=== PATIENT | female | born 1960 | race Caucasian/White ===

== ENCOUNTER 2019-10-20 09:04 | Outpatient (CLI) | payer MEDICARE, SELFPAY ==
[2019-10-20 09:24] LABS: Basophils Absolute Auto 0.1 K/mm3 (0.0-0.1); Eosinophils Absolute Auto 0.1 K/mm3 (0-0.3); Eosinophils Percent Auto 2.8 % (0-4.4); Hematocrit 43.6 % (37.0-47.0); Hemoglobin 13.6 g/dL (12.0-15.0); Immature Granulocyte Absolute 0.01 K/mm3 (0.00-0.031); Immature Granulocyte Percent A 0.2 % (0-0.5); Lymphocytes Absolute Auto 1.33 K/mm3 (0.9-3.2); Lymphocytes Percent Auto 26.5 % (18.3-44.2); Mean Corpuscular HGB Conc 31.2 g/dl (32-36); Mean Corpuscular Hemoglobin 29.6 pg (26-34); Mean Platelet Volume 10.2 fl (7.4-10.4); Monocytes Absolute Auto 0.6 K/mm3 (0.1-0.6); Neutrophils Absolute Auto 2.9 K/mm3 (1.3-6.7); Neutrophils Percent Auto 58.5 % (45.5-73.1); Platelet Count Result 208 k/mm3 (150-375); Red Blood Count 4.59 M/mm3 (4.2-5.4); Red Cell Distribution Width 15.5 % (11.5-14.5)
[2019-10-20 09:34] LABS: Alanine Aminotransferase 11 U/L (4-35); Albumin Level 4.2 g/dL (3.5-5.1); Alkaline Phosphatase 59 U/L (38-126); Aspartate Amino Transferase 20 U/L (14-36); Bilirubin,Total 0.8 mg/dL (0.2-1.3); Blood Urea Nitrogen 21 mg/dL (7-17); Calcium 9.1 mg/dL (8.4-10.2); Carbon Dioxide 30 mmol/L (22-30); Chloride 105 mmol/L (98-107); Cholesterol 177 mg/dL (0-200); Estimated Glomerular Filt Rate > 60; Glucose 86 mg/dL (65-105); HDL Direct 39 mg/dL; Sodium 142 mmol/L (137-145); Triglycerides 122 mg/dL (<150)
[2019-10-20 09:44] LABS: LDL Cholesterol Direct 101 mg/dL
[2019-10-20 10:21] LABS: Vitamin D 25 Hydroxy 53.6 ng/mL
[2019-10-20 10:35] LABS: Thyroid Stimulating Hormone Reflex 0.686 uIU/mL (0.465-4.68)
== END 2019-10-20 09:05 | disposition home or self-care (01) ==
PROVIDERS: PCP Family Medicine; Visit Provider Nurse Practitioner
DX: E55.9 Vitamin D deficiency, unspecified (principal); E03.9 Hypothyroidism, unspecified; Z13.6 Encounter for screening for cardiovascular disorders; R53.83 Other fatigue
CPT/HCPCS: 36415; 80053; 80061; 82306; 84443; 85025

== ENCOUNTER 2020-06-16 14:36 | Outpatient (CLI) | payer MEDICARE, SELFPAY ==
--- NOTE | ~2020-06-16 | MM_ITS ---
EXAMINATION: MM screening je BI w divina HISTORY: Screening mammogram TECHNIQUE: Craniocaudal and mediolateral oblique 3-D tomosynthesis images were obtained and synthetic 2-D images were generated. CAD analysis was submitted and interpreted. COMPARISON: 02/13/2017, 01/25/2016, 10/11/2014 bilateral digital screening mammogram examinations BREAST PARENCHYMAL COMPOSITION: The breasts are almost entirely fatty. FINDINGS: There is no evidence of suspicious mass, calcification, or architectural distortion to sugg est malignancy in either breast. There has been no suspicious interval change. IMPRESSION: 1. No mammographic evidence of malignancy. 2. Recommend routine screening mammography in one year. BI-RADS Category 1: Negative Reviewed, dictated and finalized at location A. TOR ENGINE ASSEMBLER
--- NOTE | ~2020-06-16 | DEXA_ITS ---
Bone Density Report Name: Mary Armstrong Age: 60 Sex: Female Ethnicity: White Date of : 1960 Indication: osteopenia; height loss; Referring Provider: Philomena Chanel Study: Bone densitometry was performed. Exam Date: June 16, 2020 Accession number: [id number] Bone Density: Region BMD T-score Z-score Classification AP Spine (L1, L2, L3) 0.860 -1.4 -0.1 Osteopenia Femoral Neck (Left) 0.618 -2.1 -0.8 Osteopenia Total Hip (Left) 0.742 -1.6 -0.7 Osteopenia Total Hip Bilateral Avg 0.802 -1.1 -0.2 Osteopenia Femoral Neck (Right) 0.757 -0.8 0.4 Normal Total Hip (Right) 0.861 -0.7 0.2 Normal World Health Organization criteria for BMD impression classify patients as: Normal (T-score at or above -1.0), Osteopenia (T-score between -1.0 and -2.5), or Osteoporosis (T-score at or below -2.5). 10-year Fracture Risk(1): Major Osteoporotic Fracture 8.3% Hip Fracture 1.0% Reported Risk Factors: [place] (), Neck BMD=0.618, BMI=40.2 (1) FRAX(R) Version 3.08. Fracture probability calculated for an untreated patient. Fracture probability may be lower if the patient has received treatment. Previous Exams: Region Exam Age BMD T-score BMD Change BMD Change Date g/cm2 vs Baseline vs Previous AP Spine(L1, L2, L3) 06/16/2020 60 0.860 -1.4 0.062(7.8%)# -0.058(-6.3%)* 02/13/2017 56 0.918 -0.9 0.120(15.1%)# 0.084(10.1%)* 10/11/2014 54 0.834 -1.7 0.036(4.5%)# 0.036(4.5%)# 08/29/2012 52 0.797 -2.0 Total Hip(Left) 06/16/2020 60 0.742 -1.6 -0.041(-5.2%)# -0.034(-4.4%)* 02/13/2017 56 0.776 -1.4 -0.006(-0.8%)# -0.026(-3.3%) 10/11/2014 54 0.802 -1.1 0.020(2.5%)# 0.020(2.5%)# 08/29/2012 52 0.783 -1.3 Total Hip(Right) 06/16/2020 60 0.861 -0.7 0.104(13.7%)# 0.113(15.0%)* 02/13/2017 56 0.749 -1.6 -0.009(-1.2%)# -0.182(-19.6%) 10/11/2014 54 0.931 -0.1 0.173(22.9%)# 0.173(22.9%)# 08/29/2012 52 0.757 -1.5 *Denotes significance at 95% confidence level, LSC for AP Spine = 0.022 g/cm2, LSC for Total Hip = 0.027 g/cm2 Clinical Information Provided by Patient: Has used the following medications: Vitamin D, Calcium Patient maximum height was 65 Menopause Age: 49 No regular weight bearing exercise Does not regularly consume dairy products Drinks caffeinated beverages Onset of menses at age 11 Number of children 0 Impression: The patient has low bone mass, based on the Left
== END 2020-06-16 14:37 | disposition home or self-care (01) ==
LOC: ANHIMG 14:41
PROVIDERS: PCP Family Medicine; Visit Provider Student in an Organized Health Care Education/Training Program
DX: Z12.31 Encounter for screening mammogram for malignant neoplasm of breast (principal); Z78.0 Asymptomatic menopausal state; M85.88 Other specified disorders of bone density and structure, other site; M85.852 Other specified disorders of bone density and structure, left thigh
CPT/HCPCS: 77063; 77067; 77080

== ENCOUNTER 2020-08-22 11:02 | Outpatient (CLI) | payer MEDICARE, SELFPAY ==
--- NOTE | 2020-08-22 11:24 | ECG_ITS ---
Measurements Intervals Harrison Rate: 68 P: -17 HI: 127 QRS: -27 QRSD: 110 T: 7 QT: 367 QTc: 391 Interpretive Statements SINUS RHYTHM INCOMPLETE RIGHT BUNDLE BRANCH BLOCK LEFT VENTRICULAR HYPERTROPHY AND ST-T CHANGE MINIMAL Q WAVES- HIGH LATERAL LEADS BORDERLINE T WAVE ABNORMALITY- INFERIOR LEADS BASELINE ARTIFACT- I, III BORDERLINE ECG Electronically Signed On 08-22-2020 11:53:02 AWS SOLUTION ARCHITECT by Stephen Briscoe D.O.
[2020-08-22 11:33] LABS: Hematocrit 44.1 % (37.0-47.0); Hemoglobin 14.2 g/dL (12.0-15.0); Mean Corpuscular HGB Conc 32.2 g/dl (32-36); Mean Corpuscular Hemoglobin 31.5 pg (26-34); Mean Corpuscular Volume 97.8 fl (80-100); Mean Platelet Volume 10.4 fl (7.4-10.4); Platelet Count Result 229 k/mm3 (150-375); Red Blood Count 4.51 M/mm3 (4.2-5.4); Red Cell Distribution Width 13.4 % (11.5-14.5); White Blood Count 6.6 K/mm3 (4.5-10.0)
[2020-08-22 11:39] LABS: Hemoglobin A1C 5.2 % (<5.7)
[2020-08-22 11:53] LABS: Alanine Aminotransferase 12 U/L (4-35); Albumin Level 4.7 g/dL (3.5-5.1); Alkaline Phosphatase 54 U/L (38-126); Anion Gap 8 mmol/L (8-16); Aspartate Amino Transferase 25 U/L (14-36); Bilirubin,Total 0.9 mg/dL (0.2-1.3); Blood Urea Nitrogen 19 mg/dL (7-17); Calcium 9.9 mg/dL (8.4-10.2); Carbon Dioxide 30 mmol/L (22-30); Chloride 104 mmol/L (98-107); Cholesterol 182 mg/dL (0-200); Estimated Glomerular Filt Rate > 60; Glucose 89 mg/dL (65-105); HDL Direct 40 mg/dL; Potassium 4.1 mmol/L (3.4-5.0); Sodium 142 mmol/L (137-145); Triglycerides 105 mg/dL (<150)
[2020-08-22 12:04] LABS: LDL Cholesterol Direct 110 mg/dL
[2020-08-22 13:19] LABS: Thyroid Stimulating Hormone Reflex 0.158 uIU/mL (0.465-4.68)
[2020-08-22 14:19] LABS: Free T4 Free Thyroxine Reflex 1.65 ng/dL (0.78-2.19)
[2020-08-22 15:15] LABS: Total Triiodothyronine (T3) 1.17 NG/ML (0.97-1.69)
[2020-08-25 11:43] LABS: Vitamin D 1,25 (OH)2 Total 42 pg/mL (18-72); Vitamin D2 1,25 (OH)2 <8 pg/mL; Vitamin D3 1,25 (OH)2 42 pg/mL
== END 2020-08-22 11:03 | disposition home or self-care (01) ==
PROVIDERS: PCP Family Medicine; Visit Provider Nurse Practitioner Family
DX: E03.9 Hypothyroidism, unspecified (principal); Z13.220 Encounter for screening for lipoid disorders; Z79.899 Other long term (current) drug therapy; I89.0 Lymphedema, not elsewhere classified; Z01.818 Encounter for other preprocedural examination; E55.9 Vitamin D deficiency, unspecified; E66.01 Morbid (severe) obesity due to excess calories; Z68.36 Body mass index [BMI] 36.0-36.9, adult
CPT/HCPCS: 36415; 80053; 80061; 82652; 83036; 84439; 84443; 84480; 85027; 93005

== ENCOUNTER 2021-03-13 08:21 | Outpatient (CLI) | payer MEDICARE, MEDICAID, SELFPAY ==
--- NOTE | ~2021-03-13 | NM_ITS ---
EXAMINATION: NM paz stress w perfusion DATE: 03/13/2021 13:07 INDICATION: Dyspnea TECHNIQUE: Rest images were obtained following intravenous administration of 9.1 mCi Tc99m tetrofosmi n (Myoview). The patient was infused intravenously with Lexiscan (Regadenoson). Then, 27.1 mCi Tc99m tetrofosmin (Myoview) was administered intravenously, and stress images were obtained. Data was recon structed into short axis and horizontal and vertical long axis SPECT images. Gated SPECT images were also obtained. COMPARISON: None. FINDINGS: There is no definite reversible or fixed perfusion abnormality to suggest ischemia or infar ction. There is normal left ventricular chamber size, wall motion and ejection fraction. Left ventr icular ejection fraction measures >70%. IMPRESSION: 1. Normal myocardial perfusion at rest and during stress. 2. Left ventricular ejection fraction measuring >70%. Reviewed, dictated and finalized at location A.
--- NOTE | 2021-03-13 08:31 | EST_ITS ---
Patient Info Name: Mary Armstrong Age: 60 years : 1960 Gender: Female Ht: 64 in Wt: 210 lbs BSA: 2.12 m2 HR: 74 bpm BP: 102 / 81 mmHg Heart Rhythm: Sinus Rhythm Exam Date: 03/13/2021 11:52 AM Exam Location: [facility] Stress Patient Status: Outpatient Admit Date: 03/13/2021 Staff Ordering Physician: Stephen Briscoe DO Attending Provider: Stephen Briscoe DO Exercise Technologist: Nai Ray CT Exercise Physician: Stephen Briscoe DO Exam Type: CA stress paz w NM Study Info A regadenoson stress test was performed. Summary 1. 1. Negative lexiscan stress test for ischemic ST changes by ECG criteria. 2. 2. Hypertensive response to lexiscan. 3. 3. Nuclear scan to follow and will be reported separately. Please correlate with it. 4. 4. Patient informed of the above results. Protocol: Lexiscan Stress ECG Details Stage: REST Duration (min): 2 min : 28 sec HR (bpm): 79 SBP (mmHg): 102 DBP (mmHg): 81 Stage: REST Duration (min): 15 min : 8 sec HR (bpm): 77 SBP (mmHg): 102 DBP (mmHg): 81 Stage: STAGE 1 Duration (min): 0 min : 59 sec HR (bpm): 111 SBP (mmHg): 102 DBP (mmHg): 81 Stage: RECOVERY Duration (min): 1 min : 0 sec HR (bpm): 109 SBP (mmHg): 149 DBP (mmHg): 114 Stage: RECOVERY Duration (min): 2 min : 0 sec HR (bpm): 104 SBP (mmHg): 149 DBP (mmHg): 114 Stage: RECOVERY Duration (min): 3 min : 0 sec HR (bpm): 101 SBP (mmHg): 149 DBP (mmHg): 114 Stage: RECOVERY Duration (min): 4 min : 0 sec HR (bpm): 91 SBP (mmHg): 260 DBP (mmHg): 101 Stage: RECOVERY Duration (min): 5 min : 0 sec HR (bpm): 100 SBP (mmHg): 260 DBP (mmHg): 101 Stage: RECOVERY Duration (min): 5 min : 25 sec HR (bpm): 95 SBP (mmHg): 166 DBP (mmHg): 95 Rest HR: 77 bpm Peak HR: 115 bpm Rest Sys BP: 102 mmHg Peak Sys BP: 160 mmHg Max Pred HR: 161 bpm % Max Pred HR: 71 % Target HR: 137 bpm Max RPP: 18,400 bpm*mmHg Termination Reason: Completed protocol Cardiac Symptoms: Shortness of breath Total Time: 1 min : 0 sec Rest Lopez BP: 81 mmHg Peak Lopez BP: 101 mmHg Total Dose: 0.4 mg Resting ECG Sinus rhythm, IRBBB. Stress ECG No ST changes. Arrhythmias None. Report Signatures
--- NOTE | 2021-03-13 08:31 | ECHO_ITS ---
Patient Info Name: Mary Armstrong Age: 60 years : 1960 Gender: Female Ht: 64 in Wt: 202 lbs BSA: 2.07 m2 HR: 83 bpm BP: 112 / 77 mmHg Heart Rhythm: Sinus Rhythm Exam Date: 03/13/2021 9:39 AM Exam Location: [facility] Pulmonary Patient Status: Outpatient Admit Date: 03/13/2021 Staff Ordering Physician: Stephen Briscoe DO Binder Cutter Hand: Agueda Sellers RDCS Attending Provider: Stephen Briscoe DO Referring Physician: Luis Felipe BARBER; Exam Type: CA echo doppler color flow Study Info Indications R06.00 - Dyspnea, unspecified Complete two-dimensional, color flow and Doppler transthoracic echocardiogram is performed. Summary 1. Complete two-dimensional, color flow and Doppler transthoracic echocardiogram is performed. 2. Left ventricular chamber dimension is normal. 3. Left ventricular systolic function is normal, estimated at 60-65%. 4. The left ventricular diastolic function is grade I diastolic dysfunction. 5. E/e' 12 is mildly elevated. 6. There is mild to moderate aortic valve regurgitation. 7. The mitral valve has mildly calcified annulus. 8. No pulmonary hypertension, estimated pulmonary arterial systolic pressure is 27 mmHg. Left Ventricle E/e' 12 is mildly elevated. Left ventricular chamber dimension is normal. Left ventricular systolic function is normal, estimated at 60-65%. The left ventricular diastolic function is grade I diastolic dysfunction. Right Ventricle Right ventricular chamber dimension is normal. Right ventricular systolic function is normal. Left Atria Left atrial chamber dimension is normal. Right Atria Right atrial chamber dimension is normal. Aortic Valve The aortic valve is trileaflet. There is no aortic valve stenosis. There is mild to moderate aortic valve regurgitation. Pulmonic Valve There is no pulmonic regurgitation. Mitral Valve The mitral valve has mildly calcified annulus. There is no mitral valve stenosis. There is no mitral valve regurgitation. Tricuspid Valve There is no tricuspid valve regurgitation. No pulmonary hypertension, estimated pulmonary arterial systolic pressure is 27 mmHg. Pericardium/Pleural There is no pericardial effusion. Inferior Vena Cava Normal inferior vena cava with >50% collapse upon inspiration consistent with normal right atrial pressure, 5 mmHg. Aorta The aortic root size at the sinus of Valsalva is normal. Left Ventricular Outflow Tract Name Value Normal LVOT 2D LVOT Diameter 1.9 cm LVOT Doppler LVOT Peak Gradient 3 mmHg LVOT Mean Gradient 2 mmHg LVOT VTI 22 cm LVOT VTI/AV VTI Ratio 0.5 LVOT Stroke Volume 61 ml LVOT CO 3.5 l/min LVOT CI 1.7 l/min/m2 Pulmonic Valve Name Value Normal RVOT Doppler ---------
== END 2021-03-13 08:22 | disposition home or self-care (01) ==
PROVIDERS: PCP Family Medicine; Visit Provider Internal Medicine Cardiovascular Disease
DX: R06.00 Dyspnea, unspecified (principal); I35.1 Nonrheumatic aortic (valve) insufficiency
CPT/HCPCS: 78452; 93017; 93306; A9502; J2785

== ENCOUNTER 2021-05-24 09:33 | Outpatient (CLI) | payer MEDICARE, MEDICAID, SELFPAY ==
[2021-05-24 10:09] LABS: Hematocrit 42.8 % (37.0-47.0); Hemoglobin 13.9 g/dL (12.0-15.0)
[2021-05-24 10:23] LABS: Albumin Level 4.5 g/dL (3.5-5.1); Estimated Glomerular Filt Rate 57
== END 2021-05-24 09:34 | disposition home or self-care (01) ==
PROVIDERS: PCP Family Medicine; Visit Provider Orthopaedic Surgery
DX: Z01.818 Encounter for other preprocedural examination (principal); M16.11 Unilateral primary osteoarthritis, right hip
CPT/HCPCS: 36415; 82040; 82565; 85014; 85018

== ENCOUNTER 2021-06-19 12:22 | Outpatient (CLI) | payer MEDICARE, MEDICAID, SELFPAY ==
[2021-06-19 14:14] LABS: Basophils Absolute Auto 0.1 K/mm3 (0.0-0.1); Basophils Percent Auto 1.1 % (0.2-1.2); Eosinophils Absolute Auto 0.1 K/mm3 (0-0.3); Eosinophils Percent Auto 2.1 % (0-4.4); Hematocrit 42.8 % (37.0-47.0); Hemoglobin 14.3 g/dL (12.0-15.0); Immature Granulocyte Absolute 0.03 K/mm3 (0.00-0.031); Immature Granulocyte Percent A 0.5 % (0-0.5); Lymphocytes Absolute Auto 1.82 K/mm3 (0.9-3.2); Lymphocytes Percent Auto 29.4 % (18.3-44.2); Mean Corpuscular HGB Conc 33.4 g/dl (32-36); Mean Corpuscular Volume 95.7 fl (80-100); Mean Platelet Volume 10.6 fl (7.4-10.4); Monocytes Absolute Auto 0.4 K/mm3 (0.1-0.6); Monocytes Percent Auto 6.9 % (2.6-8.5); Neutrophils Absolute Auto 3.7 K/mm3 (1.3-6.7); Platelet Count Result 230 k/mm3 (150-375); Red Blood Count 4.47 M/mm3 (4.2-5.4); Red Cell Distribution Width 15.4 % (11.5-14.5); White Blood Count 6.2 K/mm3 (4.5-10.0)
[2021-06-19 14:26] LABS: Hemoglobin A1C 5.3 % (<5.7)
[2021-06-19 14:27] LABS: Glucose 86 mg/dL (65-110)
[2021-06-19 18:30] LABS: Urine Cotinine NEGATIVE
== END 2021-06-19 12:23 | disposition home or self-care (01) ==
PROVIDERS: PCP Family Medicine; Visit Provider Orthopaedic Surgery
DX: M16.11 Unilateral primary osteoarthritis, right hip (principal); Z01.818 Encounter for other preprocedural examination
CPT/HCPCS: 80307; 82947; 83036; 85025; 87081

== ENCOUNTER 2021-07-18 10:29 | Inpatient (IN) | payer MEDICARE, MEDICAID, SELFPAY ==
[2021-06-19 11:49] VITALS: BP 134/86; PULSE 94; RESP 20; TEMP 36.8; O2SAT 97; BMI 38.2
--- NOTE | 2021-06-19 11:52 | PC.NURSE ---
Report to the Outpatient Waiting Room, entrance under the green pavilion located off [facility], at time _0830_ on date _07/18/21_. OR Time: _1030 AM__. - You and your visitor will be asked a series of questions to screen for COVID 19 for your protection. - A mask is required within the hospital. - Only one visitor is allowed at this time. Patient visitors will be guided where to wait when not with patient. Preoperative COVID Testing Requirements: No COVID Test needed if: (proof is required; if not received patient will have Rapid Test prior to entry) - Patient has received COVID Vaccine at least 14 days prior to procedure date or - Patient has positive COVID test result within last 90 days of surgery date. COVID Test needed if above criteria is not met If not COVID vaccinated a COVID test must be conducted within 72 hours of surgery and patient is asked to isolate self from time of testing until procedure. You will go to the [email or web address] for your COVID testing. The [employer] [facility] site is located at the corner of [address] [facility]. You will only be called if COVID results are positive and your surgeon may reschedule your elective surgery date. Patients may have clear liquids (water, carbonated beverages, clear teas, apple juice) until 3 hours prior to surgery (0730 AM) with a maximum of 20 ounces. - No food from midnight until time of surgery - Infants may have breast milk until 4 hours before surgery, infant formula 6 hours prior to surgery. - Children will be allowed to drink immediately following surgery. If applicable, please bring a bottle or sippy cup to assist with drinking. Juice, water, soda, and popsicles are readily available. For infants on formula, please bring formula the day of surgery. Pacifiers are allowed. Take the following medications with a SIP of water the morning of surgery: _BUPROPION, LEVOTHYROXINE, TRAMADOL OR TYLENOL IF NEEDED FOR PAIN___ Medications to discontinue per physician N/A Date to take last dose Please no make-up, nail tristanian, hairspray, perfume, deodorant, or body powder the day of surgery. No jewelry (including any body piercings) or valuables the day of surgery, leave them at home. Please take a shower or bath the night before, or the morning of, surgery with an antibacterial soap. Wear comfortable, loose fitting clothing. Children are encouraged to wear pajamas. - Jewelry must be removed prior to entering the operating room. Rings and piercings that are not removed may be cut off. - The hospital will not accept responsibility for valuables. - Please leave all valuables, including medications, at home the day of surgery. If you are going home after surgery, a licensed intermodal owner operator truck driver must drive you home. - NO public transportation without another adult. - We recommend that an adult stay with you for 24 hours following discharge. - We also recommend that you do not drive, make important decision, drink alcoholic beverages, or take any drugs that were not prescribed by your health care provider for at least 24 hours after your discharge time. For Pediatric surgeries, we recommend two adults accompany the child home (only one inside the building at this time). Follow any additional instructions given to you from your surgeon. Telephone instructions given to ____PT and asked if any additional questions and then verbalized understanding. Patient advised to call surgeon office or pre surgery nurse liaison [phone] if any additional questions.
[2021-07-18] VITALS (16 sets, daily range): BP systolic 96–121; BP diastolic 51–77; PULSE 66–110; RESP 13–20; TEMP 36.8–37.3; O2SAT 94–100
--- NOTE | ~2021-07-18 | XR_ITS ---
EXAMINATION: XR hip RT min 2V DATE: 07/18/2021 10:30 INDICATION: Total right hip arthroplasty. Postop. TECHNIQUE: 2 views of right hip were obtained. COMPARISON: Right hip radiographs 06/19/2021, CT abdomen and pelvis 02/23/2011 FINDINGS: There is a total right hip arthroplasty in near-anatomic alignment. No fracture. There is g as in the soft tissues, consistent with recent surgery. There are calcified fibroids in the uterus. IMPRESSION: 1. Total right hip arthroplasty in near-anatomic alignment. Reviewed, dictated and finalized at location A. TRICIAN SUBSTATION
[2021-07-18] MEDS: LACTATED RINGERS 1,000 ML 30 ML IV CONT ×2 (06:23→09:50)
[2021-07-18] MEDS: TRANEXAMIC ACID 1,000MG/ISO100 1,000 MG/100 ML BAG 200 MG IVPB (06:29)
--- NOTE | 2021-07-18 06:42 | WPDANESEPPF ---
Anes - Initial Pre Proc Eval Procedure: Operation Date: 07/18/21 07:30 Proposed Procedures p Right Total Hip Arthroplasty - Toribio Vee MD Date/Time: 07/18/21 06:42 Surgeon: Toribio Vee MD Pre Op Diagnosis: primary OA right hip Patient Data Age: 61 Gender: F Height: 1.57 m Weight: 95 kg Last Vital Signs Temp 36.8 C 06/19/21 11:49 Pulse 94 06/19/21 11:49 Resp 20 06/19/21 11:49 BP 134/86 06/19/21 11:49 Pulse Ox 97 06/19/21 11:49 Allergies Allergy/AdvReac Type Severity Reaction Status Date / Time bee venom protein (honey bee) Allergy Unknown Anaphylaxis Verified 06/19/21 12:39 pseudoephedrine Allergy Unknown Blister on Verified 06/19/21 12:39 inside of mouth Home Medications Medication Instructions Recorded Confirmed Type bupropion HCl 75 mg tablet 75 mg PO BID #180 tablet 04/27/21 06/19/21 Rx tramadol 50 mg tablet 50 mg PO DAILY PRN #30 tablet 04/27/21 06/19/21 Rx acetaminophen [Tylenol Extra 1,000 mg PO Q6H PRN 06/19/21 06/19/21 History Strength] levocetirizine 5 mg PO QAM 06/19/21 06/19/21 History levothyroxine 88 mcg QAM 06/19/21 06/19/21 History clonazepam 1 mg tablet 1 mg PO HS #30 tablet 07/05/21 Rx Patient hx anesthesia problems: post op nausea/vomiting Family hx anesthesia problems: none Results Review: All pre-operative results and documents have been reviewed as part of the pre-operative evaluation. [facility] Past Medical History Medical History Anxiety disorder, unspecified Heart murmur Hypothyroid Hypothyroidism, unspecified MCC use of drug Lymphedema Onychogryphosis GLENYS (obstructive sleep apnea) Uses CPAP nightly Osteopenia Other seasonal allergic rhinitis Primary (congenital) lymphedema Primary osteoarthritis of both knees Primary osteoarthritis of right hip Swelling of left lower extremity Urge incontinence Vitamin D deficiency, unspecified Weakness of both lower extremities Surgical History Surgical History History of ear surgery (~1979) Double Ear Canal History of elbow surgery (~1969) Bone Transfer History of hand surgery (~1969) Bone Transfer History of hernia surgery (~1999) History of tonsillectomy (~1968) Family History Family History Mother Carcinoma of colon Family history of congestive heart failure Patient's mother is , Onset Age: 67 Family history of malignant neoplasm of gastrointestinal tract Family history of primary malignant neoplasm of liver Father Family history of liver disease, Onset Age: 52 Other Family history of cardiovascular disease Hypertension Patient's mother is Other Diabetes mellitus Family history of kidney stones Social History Social History Social History: Single. Lives alone, next door to her sister. 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 Second hand tobacco smoke exposure: No Alcohol intake: never Substance use: never Substance use type: does not use Living arrangements: alone Gender identity (if verbalized by the patient): Female Spiritual care concerns: No Anes - Eval Final PreProcedure Day of Procedure 07/18/21 06:42 Patient weight: obese Heart: regular rate and rhythm Lungs: clear to auscultation Airway: Mallampati scale Neurological: alert and oriented and other (hard of hearing) Last oral intake: >/= 8 hours ASA classification: III Emergent: no Anesthetic plan: proceed Anesthesia type and monitoring: general ETT and standard monitoring Results Review: All pre-operative results and documents have been reviewed as part of the pre-operative evaluation. Informed Consent: The patient's anesthetic plan and its attendant risks and benefits were discuss
[2021-07-18] MEDS: SCOPOLAMINE 1.5 MG PATCH TRANSDERM (07:08)
--- NOTE | 2021-07-18 07:29 | WPDHPUPDATE1 ---
History and Physical Update Update Date/Time: 07/18/21 07:29 History and Physical has been reviewed, including an updated exam of the patient. There are NO changes in the patient's condition. Risks, benefits, and alternatives have been discussed and questions answered. Patient agrees to proceed with procedure.
[2021-07-18] MEDS: ceFAZolin 2 GM/D5W 50 ML 2 GM/50 ML BAG IVPB ×2 (07:35→15:50)
[2021-07-18] MEDS: VANCOMYCIN HCL 1,000 MG VIAL 1000 MG TOPICAL (09:01)
--- NOTE | 2021-07-18 09:44 | W.PM.PROC2 ---
Procedure Note - Detailed Date of Procedure 07/18/21 Pre-op Diagnosis primary OA right hip Post-op Diagnosis same Procedure Performed Right Total Hip Arthroplasty Surgeon Toribio Vee MD Remote Sensing Engineer Idania Huang PA-C Anesthesia general Findings Extensive degenerative changes. Marked obesity in the hip area. Mild acetabular protrusio. Large metaphyseal cyst. Fairly bright yellow necrotic bone marrow. Specimens sent to pathology. No purulence. No evidence of invasive process. Cortical bone quality remained good. Good Press-Fit with the femoral implant. Description of Procedure The patient was given preoperative antibiotics. A general anesthetic was administered. The patient was carefully placed in the lateral decubitus position on the PEG board. The shoulders and hips were carefully positioned for component and leg length positioning reference. The hip was prepped and draped in the usual sterile fashion. A longitudinal incision was created over the posterior aspect of the greater trochanter. Careful dissection was brought down through the deep fascia with electrocautery. A minimally invasive optimized posterior approach to the hip was performed. The short external rotators and capsule were taken down in an L-shaped capsulotomy. The tissue was tagged for later repair using number 2 high strength suture. The femoral neck was measured and taken in situ. The femoral head was removed. The acetabulum was carefully exposed. The inferior capsule was released. The labrum was resected. The acetabulum was sequentially reamed to the intended cup size. The cup was impacted into position with excellent press-fit. Typical anatomic landmarks, including the bony contact points as well as the inferior transverse acetabular ligament were used to confirm cup positioning with preoperative templating. Attention was turned to the femur, which was carefully exposed. The hip was reamed and then broached sequentially. Excellent press-fit was obtained with the broach. The hip was trialed. Measurements were utilized, including the lesser trochanter as well as the center of the femoral head and the tip of the trochanter, and excellent assessment of the offset and leg lengths were confirmed. The real component was impacted into position. Trialing confirmed appropriate leg length and offset with soft tissue balancing as well apparent feel of the leg, both at the knee and the heel. Soft tissues were assessed using the the iliotibial band. Reduction of the posterior capsule and external rotators were also used as a secondary assessment. The hip was copiously irrigated with pulsatile lavage antibiotic solution periodically throughout the procedure. The real components were then assembled and reduced. The hip was stable throughout typical maneuvers, including extension, external rotation to 70 degrees, the position of sleep as well as flexion to 90 degrees with internal rotation past 45 degrees. The shake test confirmed stability without impingement. Osteophytes were removed as necessary. The short external rotators and capsule were repaired back to the posterior trochanter through drill holes. The deep fascia was repaired with running number 2 Quill suture, followed by 0 Stratafix suture and 2-0 Stratafix suture in the dermis. Steri-Strips were placed on the skin, followed by a sterile silver occlusive dressing. There were no complications. Meticulous hemostasis was maintained with the AquaMantys device. The patient was brought to the recovery room in stable condition. There were no complications. Physician graduate assistant athletic trainer, Idania Huang PA-C, required for surgery; including patient positioning, draping, tissue retraction, maintaining instrument position, hip dislocation and relocation, wound closure, and dressing placement. Implants The Accolade II hip stem, 127 degree size 5 , was utilized with excellent press-fit. The 52 mm Trident II acetabular component
--- NOTE | 2021-07-18 10:58 | SUR.PHASEI ---
1055- NOTIFIED DR. CULLEN PATIENT COMPLAINING TAKING DEEP BREATHS IS DIFFICULT AND FEELING TIGHTNESS IN THROAT. PATIENT 100% ON ROOM AIR WITH CLEAR LUNG SOUNDS WITH GOOD AIR MOVEMENT. 1058- DR. CULLEN TO PACU 4 AND EVALUATED PATIENT. PER DR. CULLEN PATIENT'S LUNGS CLEAR AND MOVING AIR WELL, 100% ON ROOM AIR. PATIENT WILL BENEFIT FROM USING INCENTIVE SPIROMETER.
[2021-07-18] MEDS: SODIUM CHLORIDE 0.9% IV 1,000 ML 125 ML IV CONT (12:46)
[2021-07-18 12:47] LABS: Hematocrit 41.7 % (37.0-47.0); Hemoglobin 13.6 g/dL (12.0-15.0)
[2021-07-18] MEDS: ASPIRIN 81 MG ENTERIC TABLET PO (17:05)
[2021-07-18] MEDS: SENNA/DOCUSATE SODIUM TABLET 2 TAB PO (17:05)
[2021-07-18] MEDS: buPROPion HCL 75 MG TABLET PO (17:15)
[2021-07-18] MEDS: FAMOTIDINE 20 MG TABLET PO (21:18)
[2021-07-18] MEDS: clonazePAM (*CRX) 0.5 MG TABLET 1 MG PO (21:18)
[2021-07-19] MEDS: ceFAZolin 2 GM/D5W 50 ML 2 GM/50 ML BAG IVPB ×2 (00:07→09:55)
[2021-07-19] MEDS: ONDANSETRON INJ 4 MG/2 ML VIAL IV PUSH (01:12)
[2021-07-19] MEDS: oxyCODONE HCL (*CRX) 5 MG TAB IR PO (01:12)
[2021-07-19 01:25] VITALS: BP 95/64; PULSE 103; RESP 18; TEMP 36.8; O2SAT 97
--- NOTE | 2021-07-19 01:37 | PCRCNOTE ---
therapist brought down hospital unit for pt. pt stated she was no longer sleepy and did not want to wear it at this time. therapist set up unit and it is standing by.
[2021-07-19 05:25] VITALS: BP 98/44; PULSE 118; RESP 18; TEMP 36.5; O2SAT 100
[2021-07-19] MEDS: LEVOTHYROXINE SODIUM 88 MCG TABLET PO (05:33)
[2021-07-19 06:01] LABS: Anion Gap 7 mmol/L (8-16); Blood Urea Nitrogen 17 mg/dL (7-17); Carbon Dioxide 26 mmol/L (22-30); Chloride 105 mmol/L (98-107); Estimated CRCL calculation 47 ml/min; Estimated Glomerular Filt Rate 46; Glucose 130 mg/dL (65-110); Potassium 3.8 mmol/L (3.4-5.0); Sodium 138 mmol/L (137-145)
[2021-07-19 06:35] LABS: Basophils Percent Auto 0.2 % (0.2-1.2); Hematocrit 37.1 % (37.0-47.0); Hemoglobin 12.2 g/dL (12.0-15.0); Immature Granulocyte Absolute 0.03 K/mm3 (0.00-0.031); Immature Granulocyte Percent A 0.4 % (0-0.5); Lymphocytes Absolute Auto 1.27 K/mm3 (0.9-3.2); Lymphocytes Percent Auto 15.2 % (18.3-44.2); Mean Corpuscular HGB Conc 32.9 g/dl (32-36); Mean Corpuscular Hemoglobin 32.2 pg (26-34); Mean Corpuscular Volume 97.9 fl (80-100); Mean Platelet Volume 10.6 fl (7.4-10.4); Monocytes Absolute Auto 0.6 K/mm3 (0.1-0.6); Monocytes Percent Auto 7.2 % (2.6-8.5); Neutrophils Absolute Auto 6.4 K/mm3 (1.3-6.7); Platelet Count Result 201 k/mm3 (150-375); Red Blood Count 3.79 M/mm3 (4.2-5.4); Red Cell Distribution Width 15.6 % (11.5-14.5); White Blood Count 8.3 K/mm3 (4.5-10.0)
[2021-07-19 08:00] VITALS: O2SAT 100
--- NOTE | 2021-07-19 08:34 | PM.DS ---
DS: Admitting Diagnosis Discharge Date 07/19/20 Admitting Diagnosis OA Right hip DS: Summary Hospital Course Reason for hospitalization: Total hip arthroplasty Hospital Course: Patient tolerated procedure well. Has had initial PT/OT and made good progress. Status at Discharge Functional status at discharge: uses cane/walker Overall status at discharge: patient is progressing back to baseline Time Spent with Patient Time attestation: Total time spent providing and/or coordinating discharge services: Exam Narrative: Overweight 61 y/o female. Resting comfortably in bed. Wearing compression socks bilaterally. Dressing dry and intact with no drainage. Moderate swelling. No ecchymosis. No erythema. No hematoma. Range of motion limited due to pain. Calf nontender. Thigh nontender. Neurologic status intact. No varicosities. Distal pulses palpable. DS: Data Data Completed and Pending Pending studies at discharge: Pending at discharge 07/18/21 08:44 Surgical [PTH] Routine Labs on day of discharge: Labs from last 24 hours 07/19/21 07/19/21 07/18/21 05:24 05:24 12:26 WBC 8.3 RBC 3.79 L Hgb 12.2 13.6 Hct 37.1 41.7 MCV 97.9 MCH 32.2 MCHC 32.9 RDW 15.6 H Plt Count 201 MPV 10.6 H Immature Gran % (Auto) 0.4 Neut % (Auto) 77.0 H Lymph % (Auto) 15.2 L Camp % (Auto) 7.2 Eos % (Auto) 0.0 Baso % (Auto) 0.2 Lymph # (Auto) 1.27 Camp # (Auto) 0.6 Eos # (Auto) 0.0 Baso # (Auto) 0.0 Abs Immat Gran (auto) 0.03 Absolute Neuts (auto) 6.4 Absolute Nucleated RBC 0.0 Nucleated RBC % 0.0 Sodium 138 Potassium 3.8 Chloride 105 Carbon Dioxide 26 Anion Gap 7 L BUN 17 Creatinine 1.20 H Estim Creat Clear Calc 47 Estimated GFR 46 L Glucose 130 H Calcium 9.0 Discharge Plan Discharge Patient Disposition: Home, Self-Care Discharge Instructions: Remove the Scopolamine patch that was placed behind your ear in 72 hours or less. Wash your hands after touching. See instruction sheet Stand Alone Forms: General Discharge Instructions Follow-up/Referrals: Idania Huang PA [Physician Material Damage Adjuster] - Discharge Medications: New meloxicam 15 mg tablet 15 mg PO DAILY Qty: 30 RF: 0 prednisone 5 mg tablet 5 mg PO DAILY 21 Days Qty: 21 RF: 0 aspirin 81 mg tablet,delayed release (DR/EC) 81 mg PO BID 14 Days Qty: 28 RF: 0 oxycodone-acetaminophen 5-325 mg tablet 1 - 2 tablet PO Q4-6H MDD 6 PRN (Reason: pain) Qty: 30 RF: 0 Continued levothyroxine 88 mcg tablet 88 mcg QAM RF: 0 levocetirizine 5 mg tablet 5 mg PO QAM RF: 0 bupropion HCl 75 mg tablet 75 mg PO BID Qty: 180 RF: 1 clonazepam 1 mg tablet 1 mg PO HS Qty: 30 RF: 0 Held acetaminophen [Tylenol Extra Strength] 500 mg Tablet 1,000 mg PO Q6H PRN (Reason: Pain) RF: 0 Hold Instructions: Resume on 08/09/21.
[2021-07-19 09:25] VITALS: BP 96/56; PULSE 115; RESP 20; TEMP 36.4; O2SAT 100
[2021-07-19] MEDS: FAMOTIDINE 20 MG TABLET PO (09:54)
[2021-07-19] MEDS: polyethylene glycoL 3350 17 GM POWD.PACK PO (09:54)
[2021-07-19] MEDS: ASPIRIN 81 MG ENTERIC TABLET PO (09:54)
[2021-07-19] MEDS: buPROPion HCL 75 MG TABLET PO (09:54)
[2021-07-19] MEDS: LORATADINE 10 MG TABLET PO (09:54)
--- NOTE | 2021-07-19 10:49 | PCPTNOTE ---
Patient is unable to demonstrate ability to ascend 1 step to enter home. Forward and backward methods were attempted but patient was not able to complete step up with max cues and assist. Patient instructed and participated in using chair on step level to back up to and sit as an alternative to get in house. Patient will need assist for chair placement in the house on level top step and assist to maneuver chair once in the house. Patient states s she is comfortable with this technique and will be able to instruct her sister in this method and have her assist. I voiced my safety concerns with patient and patient insisted she will be able to mange at home with assist from her sister. Home Health recommended to improve strength and mobility following discharge.
[2021-07-19] MEDS: ACETAMINOPHEN 500 MG TABLET 1000 MG PO (11:23)
--- NOTE | 2021-07-19 11:37 | PC.NURSE ---
Patient is discharging home soon and Senna was unable.
== END 2021-07-19 11:45 | disposition home health service (06) | DRG 470 ==
LOC: ANHSUROVER 07-19 09:37
PROVIDERS: Physician Assistant Surgical; Admitting Provider Orthopaedic Surgery; PCP Family Medicine; Visit Provider Orthopaedic Surgery
PROC: 0SR904A Replacement of Right Hip Joint with Ceramic on Polyethylene Synthetic Substitute, Uncemented, Open Approach (ICD-10-PCS; CPT 27130; principal; 2021-07-18 07:30)
DX: M16.11 Unilateral primary osteoarthritis, right hip (principal); C96.5 Multifocal and unisystemic Langerhans-cell histiocytosis; R01.1 Cardiac murmur, unspecified; R06.00 Dyspnea, unspecified; I89.0 Lymphedema, not elsewhere classified; E66.9 Obesity, unspecified; E03.9 Hypothyroidism, unspecified; E55.9 Vitamin D deficiency, unspecified; F41.9 Anxiety disorder, unspecified; G47.33 Obstructive sleep apnea (adult) (pediatric); Z68.37 Body mass index [BMI] 37.0-37.9, adult; Z79.899 Other long term (current) drug therapy
CPT/HCPCS: 36415; 73502; 80048; 85014; 85018; 85025; 86850; 86900; 86901; 88305; 88311; 88342; 97110; 97116; 97161; 97165; 97530; 97535; A9270; C1776; J0131; J0171; J0690; J1100; J1170; J1200; J1885; J2270; J2370; J2405; J2704; J2710; J2795; J3010; J3370; J7030; J7120

== ENCOUNTER 2022-10-24 14:08 | Outpatient (CLI) | payer MEDICARE, MEDICAID, SELFPAY ==
--- NOTE | 2022-10-24 14:29 | ECHO_ITS ---
Patient Info Name: Mary Armstrong Age: 62 years : 1960 Gender: Female Ht: 64 in Wt: 189 lbs BSA: 2.00 m2 HR: 87 bpm BP: 138 / 74 mmHg Heart Rhythm: Sinus Rhythm Technical Quality: Fair Exam Date: 10/24/2022 2:41 PM Exam Location: [facility] Patient Status: Outpatient Admit Date: 10/24/2022 Staff Ordering Physician: Stephen Briscoe DO [employer] Frame Builder: Ana Campos RDCS Attending Provider: Stephen Briscoe DO Referring Physician: Luis Felipe BARBER; Exam Type: CA echo doppler color flow Study Info Indications I35.1 - Nonrheumatic aortic (valve) insufficiency Complete two-dimensional, color flow and Doppler transthoracic echocardiogram is performed. Summary 1. Complete two-dimensional, color flow and Doppler transthoracic echocardiogram is performed. 2. Left ventricular chamber dimension is normal. 3. Left ventricular systolic function is normal, estimated at 55-60%. 4. The left ventricular diastolic function is grade I diastolic dysfunction. 5. E/e' 11 is mildly elevated. 6. Global longitudinal strain is normal at -18.6%. 7. There is mild aortic valve sclerosis. 8. There is mild to moderate aortic valve regurgitation. 9. There is trace mitral valve regurgitation. 10. No pulmonary hypertension, estimated pulmonary arterial systolic pressure is 22 mmHg. Left Ventricle E/e' 11 is mildly elevated. Global longitudinal strain is normal at -18.6%. Left ventricular chamber dimension is normal. Left ventricular systolic function is normal, estimated at 55-60%. The left ventricular diastolic function is grade I diastolic dysfunction. Right Ventricle Right ventricular systolic function is normal and with normal TAPSE 2.3 cm. Right ventricular chamber dimension is normal. Left Atria Left atrial chamber dimension is normal. Right Atria Right atrial chamber dimension is normal. Aortic Valve The aortic valve is trileaflet. There is mild aortic valve sclerosis. There is no aortic valve stenosis. There is mild to moderate aortic valve regurgitation. Pulmonic Valve There is no pulmonic regurgitation. Mitral Valve There is no mitral valve stenosis. There is trace mitral valve regurgitation. Tricuspid Valve There is no tricuspid valve regurgitation. No pulmonary hypertension, estimated pulmonary arterial systolic pressure is 22 mmHg. Pericardium/Pleural There is no pericardial effusion. Inferior Vena Cava Normal inferior vena cava with >50% collapse upon inspiration consistent with normal right atrial pressure, 5 mmHg. Aorta The aortic root size at the sinus of Valsalva is normal. Left Ventricular Outflow Tract Name Value Normal LVOT 2D LVOT Diameter 2.0 cm LVOT Doppler LVOT Peak Gradient 3 mmHg LVOT Mean Gradient 2 mmHg LVOT VTI 19 cm LVOT VTI/AV VTI Ratio 0.5 LVOT Stroke Volume 57 ml LVOT CO 4.1 l/min LVOT CI 2.1 l/min/m2 Pulmonic Valve ---------
== END 2022-10-24 14:09 | disposition home or self-care (01) ==
LOC: ANHCARD 14:08
PROVIDERS: PCP Nurse Practitioner Family; Visit Provider Internal Medicine Cardiovascular Disease
DX: I35.1 Nonrheumatic aortic (valve) insufficiency (principal)
CPT/HCPCS: 93306

== ENCOUNTER 2022-11-23 14:49 | Outpatient (CLI) | payer MEDICARE, MEDICAID, SELFPAY ==
--- NOTE | ~2022-11-23 | US_ITS ---
EXAMINATION: US thyroid DATE: 11/23/2022 15:31 INDICATION: Nontoxic single thyroid nodule. TECHNIQUE: Multiple ultrasound images of the thyroid were obtained. COMPARISON: None. FINDINGS: The right thyroid lobe measures 4.3 x 1.2 x 1.2 cm. The left thyroid lobe measures 2.7 x 0.8 x 1.1 c m. The thyroid is diffusely heterogeneous and hypoechoic. No discrete nodule. Vascularity is normal. IMPRESSION: 1. Heterogeneous thyroid, likely chronic lymphocytic (Kala) thyroiditis. Reviewed, dictated and finalized at location E.
== END 2022-11-23 14:50 | disposition home or self-care (01) ==
LOC: ANHIMG 14:51
PROVIDERS: PCP Nurse Practitioner Family; Visit Provider Nurse Practitioner Family
DX: E04.1 Nontoxic single thyroid nodule (principal)
CPT/HCPCS: 76536

== ENCOUNTER 2022-11-29 09:41 | Outpatient (CLI) | payer MEDICARE, MEDICAID, SELFPAY ==
[2022-11-29 10:20] LABS: Basophils Absolute Auto 0.1 K/mm3 (0.0-0.1); Basophils Percent Auto 1.3 % (0.2-1.2); Eosinophils Absolute Auto 0.2 K/mm3 (0-0.3); Hematocrit 42.2 % (37.0-47.0); Hemoglobin 13.5 g/dL (12.0-15.0); Immature Granulocyte Absolute 0.02 K/mm3 (0.00-0.031); Immature Granulocyte Percent A 0.4 % (0-0.5); Lymphocytes Absolute Auto 1.09 K/mm3 (0.9-3.2); Lymphocytes Percent Auto 20.7 % (18.3-44.2); Mean Corpuscular Hemoglobin 30.4 pg (26-34); Monocytes Absolute Auto 0.4 K/mm3 (0.1-0.6); Neutrophils Absolute Auto 3.5 K/mm3 (1.3-6.7); Neutrophils Percent Auto 66.6 % (45.5-73.1); Platelet Count Result 179 k/mm3 (150-375); Red Blood Count 4.44 M/mm3 (4.2-5.4); Red Cell Distribution Width 14.8 % (11.5-14.5); White Blood Count 5.3 K/mm3 (4.5-10.0)
[2022-11-29 10:31] LABS: Alanine Aminotransferase 13 U/L (6-35); Albumin Level 4.4 g/dL (3.5-5.1); Alkaline Phosphatase 50 U/L (38-126); Anion Gap 4 mmol/L (8-16); Aspartate Amino Transferase 19 U/L (14-36); Bilirubin,Total 0.8 mg/dL (0.2-1.3); Blood Urea Nitrogen 25 mg/dL (7-17); Carbon Dioxide 34 mmol/L (22-30); Chloride 102 mmol/L (98-107); Cholesterol 157 mg/dL (0-200); Estimated Glomerular Filt Rate > 60; Glucose 75 mg/dL (65-110); HDL Direct 44 mg/dL; Potassium 3.9 mmol/L (3.4-5.0); Sodium 140 mmol/L (137-145); Triglycerides 74 mg/dL (<150)
[2022-11-29 10:42] LABS: LDL Cholesterol Direct 89 mg/dL
== END 2022-11-29 09:42 | disposition home or self-care (01) ==
PROVIDERS: PCP Nurse Practitioner Family; Visit Provider Nurse Practitioner Family
DX: E03.9 Hypothyroidism, unspecified (principal); I10 Essential (primary) hypertension; E78.5 Hyperlipidemia, unspecified
CPT/HCPCS: 36415; 80053; 80061; 84443; 85025

== ENCOUNTER 2022-12-28 01:33 | Day surgery (SDC) | payer MEDICARE, MEDICAID, SELFPAY ==
[2022-12-21 11:31] VITALS: BMI 32.3
--- NOTE | 2022-12-28 08:14 | WPDANESEPPF ---
Anes - Initial Pre Proc Eval Procedure: Operation Date: 12/28/22 13:00 Proposed Procedures p Colonoscopy - Johnathan Bell MD Date/Time: 12/28/22 08:14 Surgeon: Johnathan Bell MD Pre Op Diagnosis: Family history of colon cancer Patient Data Age: 62 Gender: F Height: 1.63 m Weight: 85.5 kg Allergies Allergy/AdvReac Type Severity Reaction Status Date / Time pseudoephedrine Allergy Unknown Blister on Verified 12/28/22 12:11 inside of mouth Home Medications Medication Instructions Recorded Confirmed Type acetaminophen 500 mg tablet 1,000 mg PO Q6H PRN Pain 06/19/21 12/21/22 History (Tylenol Extra Strength) meloxicam 15 mg tablet 7.5 mg PO BID #90 tabs 08/13/22 12/21/22 Rx bupropion HCl 75 mg tablet 75 mg PO BID #180 tabs 08/27/22 12/21/22 Rx oxybutynin chloride 10 mg 10 mg PO DAILY #90 tabs 11/15/22 12/21/22 Rx tablet,extended release 24 hr levothyroxine 88 mcg tablet 88 mcg PO DAILY #90 tabs 11/26/22 12/28/22 Rx trazodone 50 mg tablet 50 mg PO QHS PRN sleep #90 tabs 11/26/22 12/21/22 Rx Patient hx anesthesia problems: none Family hx anesthesia problems: none Results Review: All pre-operative results and documents have been reviewed as part of the pre-operative evaluation. [facility] Past Medical History Medical History (Updated 11/15/22 @ 16:02 by Elsa Romero NP) Anxiety disorder, unspecified Family hx of colon cancer patient's mother had colon cancer Heart murmur Hypothyroid Hypothyroidism, unspecified correction use of drug Lymphedema Onychogryphosis GLENYS (obstructive sleep apnea) Uses CPAP nightly Osteopenia Other seasonal allergic rhinitis Primary (congenital) lymphedema Primary osteoarthritis of both knees Primary osteoarthritis of right hip Stress incontinence Swelling of left lower extremity Urge incontinence Vitamin D deficiency, unspecified Weakness of both lower extremities Surgical History Surgical History History of ear surgery (~1979) Double Ear Canal History of elbow surgery (~1969) Bone Transfer History of hand surgery (~1969) Bone Transfer History of hernia surgery (~1999) History of right hip replacement (~07/18/21) right hip fracture 2 days after hip replacement History of tonsillectomy (~1968) Family History Family History Mother Carcinoma of colon Family history of congestive heart failure Patient's mother is , Onset Age: 67 Family history of malignant neoplasm of gastrointestinal tract Family history of primary malignant neoplasm of liver Father Family history of liver disease, Onset Age: 52 Other Family history of cardiovascular disease Hypertension Patient's mother is Other Diabetes mellitus Family history of kidney stones Social History Social History Social History: Single. Lives alone, next door to her sister. 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 Smoking status: Never smoker Second hand tobacco smoke exposure: No Alcohol intake: never Substance use: never Substance use type: does not use Lack of Transportation: No Lack of Food: Never True Current Housing: I Have Housing Concerned About Future Housing: No Difficulty Paying Gas/Electric Bills: No Difficulty Paying for Meds: No Currently Unemployed: No Education: Trade/Vocational Certificate Difficulty w/ Childcare or Family Care: No Living arrangements: with family Occupation/Education: occupation Gender identity (if verbalized by the patient): Female Spiritual care concerns: No Anes - Eval Final PreProcedure Day of Procedure 12/28/22 08:14 Patient weight: obese Heart: regular rate and rhythm Lungs: clear to auscultation Airway: Mallampati scale Neurological: alert and oriented and other (hard of hear
[2022-12-28 12:12] VITALS: BP 103/45; PULSE 83; RESP 18; TEMP 36.6; O2SAT 99
[2022-12-28] MEDS: LACTATED RINGERS 1,000 ML 150 ML IV CONT (12:27)
--- NOTE | 2022-12-28 12:38 | PM.HPGS ---
History of Present Illness History of Present Illness Consent: Risks, benefits, and alternatives have been discussed and questions answered. Patient agrees to proceed with procedure. Chief complaint: Family history of colon cancer Narrative: Mary Armstrong is a 62 year old female Presents for screening colonoscopy. Patient's current weight appetite and bowel movements are normal. Family history is significant that her mother had colon cancer. Previous colonoscopy 2010 was unremarkable. Patient reports bowel habits are currently normal with no pain or bleeding. She presents today for screening colonoscopy. She denies any known history of colon polyps. Review of Systems Review of Systems: Review of systems noncontributory. [facility] Past Medical History Medical History (Updated 11/15/22 @ 16:02 by Elsa Romero NP) Anxiety disorder, unspecified Family hx of colon cancer patient's mother had colon cancer Heart murmur Hypothyroid Hypothyroidism, unspecified ocean transportation intermediary use of drug Lymphedema Onychogryphosis GLENYS (obstructive sleep apnea) Uses CPAP nightly Osteopenia Other seasonal allergic rhinitis Primary (congenital) lymphedema Primary osteoarthritis of both knees Primary osteoarthritis of right hip Stress incontinence Swelling of left lower extremity Urge incontinence Vitamin D deficiency, unspecified Weakness of both lower extremities Surgical History Surgical History History of ear surgery (~1979) Double Ear Canal History of elbow surgery (~1969) Bone Transfer History of hand surgery (~1969) Bone Transfer History of hernia surgery (~1999) History of right hip replacement (~07/18/21) right hip fracture 2 days after hip replacement History of tonsillectomy (~1968) Family History Family History Mother Carcinoma of colon Family history of congestive heart failure Patient's mother is , Onset Age: 67 Family history of malignant neoplasm of gastrointestinal tract Family history of primary malignant neoplasm of liver Father Family history of liver disease, Onset Age: 52 Other Family history of cardiovascular disease Hypertension Patient's mother is Other Diabetes mellitus Family history of kidney stones Social History Social History Social History: Single. Lives alone, next door to her sister. 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 Smoking status: Never smoker Second hand tobacco smoke exposure: No Alcohol intake: never Substance use: never Substance use type: does not use Lack of Transportation: No Lack of Food: Never True Current Housing: I Have Housing Concerned About Future Housing: No Difficulty Paying Gas/Electric Bills: No Difficulty Paying for Meds: No Currently Unemployed: No Education: Trade/Vocational Certificate Difficulty w/ Childcare or Family Care: No Living arrangements: with family Occupation/Education: occupation Gender identity (if verbalized by the patient): Female Spiritual care concerns: No Meds Home Medications and Allergies Home Medications Medication Instructions Recorded Confirmed Type acetaminophen 500 mg tablet 1,000 mg PO Q6H PRN Pain 06/19/21 12/21/22 History (Tylenol Extra Strength) meloxicam 15 mg tablet 7.5 mg PO BID #90 tabs 08/13/22 12/21/22 Rx bupropion HCl 75 mg tablet 75 mg PO BID #180 tabs 08/27/22 12/21/22 Rx oxybutynin chloride 10 mg 10 mg PO DAILY #90 tabs 11/15/22 12/21/22 Rx tablet,extended release 24 hr levothyroxine 88 mcg tablet 88 mcg PO DAILY #90 tabs 11/26/22 12/28/22 Rx trazodone 50 mg tablet 50 mg PO QHS PRN sleep #90 tabs 11/26/22 12/21/22 Rx Allergies Allergy/AdvReac Type Severity Reaction Status Date / Time pseudoephedrine Allergy Unknown Blister on Verifi
[2022-12-28 13:53] VITALS: BP 101/53; PULSE 72; RESP 17; O2SAT 98
[2022-12-28 14:03] VITALS: BP 101/66; PULSE 71; RESP 17; O2SAT 99
[2022-12-28 14:13] VITALS: BP 107/57; PULSE 60; RESP 18; O2SAT 100
== END 2022-12-28 14:25 | disposition home or self-care (01) ==
PROVIDERS: PCP Nurse Practitioner Family; Visit Provider Internal Medicine Gastroenterology
PROC: 0DJD8ZZ Inspection of Lower Intestinal Tract, Via Natural or Artificial Opening Endoscopic (ICD-10-PCS; CPT 45378; principal; 2022-12-28 13:00)
DX: Z12.11 Encounter for screening for malignant neoplasm of colon (principal); K64.8 Other hemorrhoids; Z80.0 Family history of malignant neoplasm of digestive organs; E03.9 Hypothyroidism, unspecified; F41.9 Anxiety disorder, unspecified; G47.33 Obstructive sleep apnea (adult) (pediatric); N39.3 Stress incontinence (female) (male); E66.9 Obesity, unspecified; Z68.32 Body mass index [BMI] 32.0-32.9, adult
CPT/HCPCS: G0105; J7120

== ENCOUNTER 2023-05-30 14:48 | Outpatient (CLI) | payer MEDICARE, MEDICAID, SELFPAY ==
--- NOTE | ~2023-05-30 | MM_ITS ---
EXAMINATION: MM screening [facility] BI w divina HISTORY: Screening mammogram TECHNIQUE: Craniocaudal and mediolateral oblique 3-D tomosynthesis images were obtained and synthetic 2-D images were generated. CAD analysis was submitted and interpreted. COMPARISON: 06/16/2020, 02/13/2017, 01/25/2016 BREAST PARENCHYMAL COMPOSITION: The breasts are almost entirely fatty. FINDINGS: No suspicious mass, calcification, or architectural distortion are identified in either jossue ast to suggest malignancy. There has been no suspicious interval change. IMPRESSION: 1. No mammographic evidence of malignancy. 2. Recommend routine screening mammography in one year. BI-RADS Category 1: Negative Reviewed, dictated and finalized at location A. OSITION ROOFER
--- NOTE | ~2023-05-30 | DEXA_ITS ---
Bone Density Report Name: MARI LECHUGA Age: 63 Sex: Female Ethnicity: White Date of : 1960 Indication: osteopenia; height loss; rheumatoid arthritis; postmenopausal Referring Provider: ROSITA, SHEA Yoo Study: Bone densitometry was performed. Exam Date: May 30, 2023 Accession number: [id number] Bone Density: Region BMD T-score Z-score Classification AP Spine(L1-L4) 0.974 -0.7 0.9 Normal Femoral Neck (Left) 0.518 -3.0 -1.6 Osteoporosis Total Hip (Left) 0.700 -2.0 -0.9 Osteopenia World Health Organization criteria for BMD impression classify patients as: Normal (T-score at or above -1.0), Osteopenia (T-score between -1.0 and -2.5), or Osteoporosis (T-score at or below -2.5). 10-year Fracture Risk: FRAX not reported because: Some T-score for Spine Total or Hip Total or Femoral Neck at or below -2.5 Previous Exams: Region Exam Age BMD T-score BMD Change BMD Change Date g/cm2 vs Baseline vs Previous AP Spine (L1-L4) 05/30/2023 63 0.974 -0.7 0.116 (13.5%)# 0.116 (13.5%)# 08/29/2012 52 0.858 -1.7 Total Hip(Left) 05/30/2023 63 0.700 -2.0 -0.083 (-10.6% -0.043 (-5.7%) 06/16/2020 60 0.742 -1.6 -0.041 (-5.2%) -0.034 (-4.4%) 02/13/2017 56 0.776 -1.4 -0.006 (-0.8%) -0.026 (-3.3%) 10/11/2014 54 0.802 -1.1 0.020 (2.5%)# 0.020 (2.5%)# 08/29/2012 52 0.783 -1.3 *Denotes significance at 95% confidence level, LSC for AP Spine = 0.022 g/cm2, LSC for Total Hip = 0.027 g/cm2 # Denotes dissimilar scan types or analysis methods Clinical Information Provided by Patient: Has rheumatoid arthritis Patient maximum height was 64 Menopause Age: 51 No regular weight bearing exercise Onset of menses at age 11 Number of children 0 Impression: The patient has osteoporosis, based on the Left Femoral Neck T-score. The BMD for the Total Hip(Left) decreased, changing by -5.7% since the last DXA exam. Discussion: INCREASED RISK OF FRACTURE. BONE DENSITY IS UNDESIRABLY LOW AT ONE OR MORE SKELETAL SITES, CONSISTENT WITH POSTMENOPAUSAL OSTEOPOROSIS. This patient's lowest T-score meets the World Health Organization's (WHO) criteria for osteoporosis at one or more sites (T-score -2.5 or below). In untreated patients, the risk of osteoporotic fracture increases approximately two-fold for each 1.0 SD decrease in T-score. Low bone density is not the only risk factor for fracture; also consider factors such as patient's age, frailty or poor health, risk of falling, risk of injury, previous osteoporotic fracture, family
== END 2023-05-30 14:49 | disposition home or self-care (01) ==
PROVIDERS: PCP Family Medicine; Visit Provider Nurse Practitioner Family
DX: Z12.31 Encounter for screening mammogram for malignant neoplasm of breast (principal); Z78.0 Asymptomatic menopausal state; M81.0 Age-related osteoporosis without current pathological fracture; M85.852 Other specified disorders of bone density and structure, left thigh
CPT/HCPCS: 77063; 77067; 77080

== ENCOUNTER 2023-11-07 09:27 | Outpatient (CLI) | payer MEDICARE, MEDICAID, SELFPAY ==
[2023-11-07 10:02] LABS: Basophils Absolute Auto 0.1 K/mm3 (0.0-0.1); Basophils Percent Auto 1.3 % (0.2-1.2); Eosinophils Absolute Auto 0.2 K/mm3 (0-0.3); Eosinophils Percent Auto 3.3 % (0-4.4); Hematocrit 42.7 % (37.0-47.0); Hemoglobin 13.9 g/dL (12.0-15.0); Immature Granulocyte Absolute 0.02 K/mm3 (0.00-0.031); Immature Granulocyte Percent A 0.3 % (0-0.5); Lymphocytes Absolute Auto 1.17 K/mm3 (0.9-3.2); Lymphocytes Percent Auto 19.2 % (18.3-44.2); Mean Corpuscular HGB Conc 32.6 g/dl (32-36); Mean Corpuscular Volume 95.3 fl (80-100); Mean Platelet Volume 10.9 fl (7.4-10.4); Monocytes Absolute Auto 0.5 K/mm3 (0.1-0.6); Monocytes Percent Auto 7.7 % (2.6-8.5); Neutrophils Absolute Auto 4.2 K/mm3 (1.3-6.7); Neutrophils Percent Auto 68.2 % (45.5-73.1); Platelet Count Result 206 k/mm3 (150-375); Red Blood Count 4.48 M/mm3 (4.2-5.4); Red Cell Distribution Width 14.5 % (11.5-14.5); White Blood Count 6.1 K/mm3 (4.5-10.0)
[2023-11-07 10:25] LABS: Alanine Aminotransferase 11 U/L (6-35); Albumin Level 4.5 g/dL (3.5-5.1); Alkaline Phosphatase 48 U/L (38-126); Anion Gap 7 mmol/L (4-12); Aspartate Amino Transferase 20 U/L (14-36); Blood Urea Nitrogen 23 mg/dL (7-17); Calcium 9.6 mg/dL (8.4-10.2); Carbon Dioxide 29 mmol/L (22-30); Chloride 106 mmol/L (98-107); Cholesterol 167 mg/dL (0-200); Estimated Glomerular Filt Rate 56; Glucose 86 mg/dL (65-110); HDL Direct 41 mg/dL; Potassium 4.1 mmol/L (3.4-5.0); Sodium 142 mmol/L (137-145); Triglycerides 89 mg/dL (<150)
[2023-11-07 10:36] LABS: LDL Cholesterol Direct 95 mg/dL
[2023-11-07 10:54] LABS: Vitamin D 25 Hydroxy 31.8 ng/mL
== END 2023-11-07 09:28 | disposition home or self-care (01) ==
PROVIDERS: PCP Family Medicine; Visit Provider Nurse Practitioner Family
DX: E03.9 Hypothyroidism, unspecified (principal); E55.9 Vitamin D deficiency, unspecified; Z79.899 Other long term (current) drug therapy; I95.9 Hypotension, unspecified; Z13.29 Encounter for screening for other suspected endocrine disorder; E78.5 Hyperlipidemia, unspecified
CPT/HCPCS: 36415; 80053; 80061; 82306; 84443; 85025

== ENCOUNTER 2023-11-13 10:10 | Outpatient (CLI) | payer MEDICARE, MEDICAID, SELFPAY | END 2023-11-13 10:11 | disposition home or self-care (01) | LOC: ANHLAB 10:12 | PROVIDERS: PCP Family Medicine; Visit Provider Nurse Practitioner Family | DX: E03.9 Hypothyroidism, unspecified (principal) | CPT/HCPCS: 36415; 84443 ==

== ENCOUNTER 2024-07-03 11:30 | Outpatient (CLI) | payer MEDICARE, MEDICAID, SELFPAY ==
--- NOTE | ~2024-07-03 | XR_ITS ---
EXAMINATION: XR ankle LT min 3V DATE: 07/03/2024 12:13 INDICATION: Left foot and ankle pain TECHNIQUE: 1. Anteroposterior, mortise, additional oblique and lateral view of the left ankle were obtained. 2. Dorsoplantar, two oblique and lateral views of the left foot were obtained. COMPARISON: None. FINDINGS: Cavovarus deformity of the left foot with pes cavus, hindfoot varus, plantar flexion of the first ray and metatarsus adductus. No fractures identified. The first proximal phalanx appears shortened, uncl ear whether this is developmental, sequela of old trauma or artifact of foreshortening due to the non standard alignment. Polyarticular osteoarthritis throughout the foot and ankle, moderate severity at the talonavicular, naviculocuneiform and a few central tarsal metatarsal joints with mild osteoarthri tis at the remaining joints in throughout the right foot. There is diffuse soft tissue swelling and s ubcutaneous edema throughout the foot, ankle and extending proximally throughout the visualized lower leg. This appears most prominent over the lateral side of the lower leg. There is suggestion of an u lceration overlying the posterior tuberosity of the calcaneus. No periosteal reaction, cortical erosi ons or ostial lysis to suggest osteomyelitis. IMPRESSION: 1. Left foot cavovarus deformity with mild to moderate polyarticular osteoarthritis at the left foot and ankle. 2. Diffuse soft tissue swelling throughout the left foot, ankle and visualized lower leg. No acute os seous abnormality. 3. Suggestion of an ulceration overlying the posterior tuberosity of the calcaneus without evident os teomyelitis. Reviewed, dictated and finalized at location A. BITION CARVER IMPRESSION: 1. Left foot cavovarus deformity with mild to moderate polyarticular osteoarthr itis at the left foot and ankle. 2. Diffuse soft tissue swelling throughout the left foot, ankle and visualized lower leg. No acute osseous abnormality. 3. Suggestion of an ulceration overlying the posterior tuberosity of the calcan eus without evident osteomyelitis.
--- NOTE | ~2024-07-03 | XR_ITS ---
EXAMINATION: XR foot LT min 3V DATE: 07/03/2024 12:13 INDICATION: Left foot and ankle pain TECHNIQUE: 1. Anteroposterior, mortise, additional oblique and lateral view of the left ankle were obtained. 2. Dorsoplantar, two oblique and lateral views of the left foot were obtained. COMPARISON: None. FINDINGS: Cavovarus deformity of the left foot with pes cavus, hindfoot varus, plantar flexion of the first ray and metatarsus adductus. No fractures identified. The first proximal phalanx appears shortened, uncl ear whether this is developmental, sequela of old trauma or artifact of foreshortening due to the non standard alignment. Polyarticular osteoarthritis throughout the foot and ankle, moderate severity at the talonavicular, naviculocuneiform and a few central tarsal metatarsal joints with mild osteoarthri tis at the remaining joints in throughout the right foot. There is diffuse soft tissue swelling and s ubcutaneous edema throughout the foot, ankle and extending proximally throughout the visualized lower leg. This appears most prominent over the lateral side of the lower leg. There is suggestion of an u lceration overlying the posterior tuberosity of the calcaneus. No periosteal reaction, cortical erosi ons or ostial lysis to suggest osteomyelitis. IMPRESSION: 1. Left foot cavovarus deformity with mild to moderate polyarticular osteoarthritis at the left foot and ankle. 2. Diffuse soft tissue swelling throughout the left foot, ankle and visualized lower leg. No acute os seous abnormality. 3. Suggestion of an ulceration overlying the posterior tuberosity of the calcaneus without evident os teomyelitis. Reviewed, dictated and finalized at location A. MAKER IMPRESSION: 1. Left foot cavovarus deformity with mild to moderate polyarticular osteoarthr itis at the left foot and ankle. 2. Diffuse soft tissue swelling throughout the left foot, ankle and visualized lower leg. No acute osseous abnormality. 3. Suggestion of an ulceration overlying the posterior tuberosity of the calcan eus without evident osteomyelitis.
== END 2024-07-03 11:31 | disposition home or self-care (01) ==
PROVIDERS: PCP Family Medicine; Visit Provider Family Medicine
DX: M79.672 Pain in left foot (principal); R93.6 Abnormal findings on diagnostic imaging of limbs
CPT/HCPCS: 73610; 73630

== ENCOUNTER 2024-11-19 10:13 | Outpatient (CLI) | payer MEDICARE, MEDICAID, SELFPAY ==
[2024-11-19 10:55] LABS: Basophils Absolute Auto 0.1 K/mm3 (0.0-0.1); Basophils Percent Auto 0.8 % (0.2-1.2); Eosinophils Absolute Auto 0.2 K/mm3 (0-0.3); Eosinophils Percent Auto 1.5 % (0-4.4); Hematocrit 40.9 % (37.0-47.0); Hemoglobin 13.1 g/dL (12.0-15.0); Immature Granulocyte Absolute 0.05 K/mm3 (0.00-0.031); Immature Granulocyte Percent A 0.5 % (0-0.5); Lymphocytes Absolute Auto 1.14 K/mm3 (0.9-3.2); Lymphocytes Percent Auto 11.2 % (18.3-44.2); Mean Corpuscular Hemoglobin 30.9 pg (26-34); Mean Corpuscular Volume 96.5 fl (80-100); Mean Platelet Volume 9.9 fl (7.4-10.4); Monocytes Absolute Auto 0.6 K/mm3 (0.1-0.6); Neutrophils Absolute Auto 8.2 K/mm3 (1.3-6.7); Platelet Count Result 273 k/mm3 (150-375); Red Blood Count 4.24 M/mm3 (4.2-5.4); Red Cell Distribution Width 14.6 % (11.5-14.5); White Blood Count 10.2 K/mm3 (4.5-10.0)
[2024-11-19 11:07] LABS: Alanine Aminotransferase 14 U/L (6-35); Albumin Level 4.4 g/dL (3.5-5.1); Alkaline Phosphatase 54 U/L (38-126); Anion Gap 6 mmol/L (4-12); Aspartate Amino Transferase 23 U/L (14-36); Blood Urea Nitrogen 20 mg/dL (7-17); Calcium 9.5 mg/dL (8.4-10.2); Carbon Dioxide 31 mmol/L (22-30); Chloride 105 mmol/L (98-107); Cholesterol 179 mg/dL (0-200); Estimated Glomerular Filt Rate > 60; Glucose 87 mg/dL (65-110); HDL Direct 43 mg/dL; Sodium 142 mmol/L (137-145); Triglycerides 87 mg/dL (<150)
[2024-11-19 11:18] LABS: LDL Cholesterol Direct 89 mg/dL
[2024-11-19 11:26] LABS: Free T4 Free Thyroxine 1.57 ng/dL (0.78-2.19); Vitamin D 25 Hydroxy 27.6 ng/mL
[2024-11-19 12:32] LABS: Hemoglobin A1C 5.2 % (<5.7)
== END 2024-11-19 10:14 | disposition home or self-care (01) ==
PROVIDERS: PCP Family Medicine; Visit Provider Nurse Practitioner Family
DX: E55.9 Vitamin D deficiency, unspecified (principal); I10 Essential (primary) hypertension; E78.5 Hyperlipidemia, unspecified; R73.9 Hyperglycemia, unspecified; E03.9 Hypothyroidism, unspecified
CPT/HCPCS: 36415; 80053; 80061; 82306; 83036; 84439; 84443; 85025

== ENCOUNTER 2025-01-27 13:45 | Outpatient (CLI) | payer MEDICARE, MEDICAID, SELFPAY ==
--- NOTE | 2025-01-27 14:10 | ECHO_ITS ---
Patient Info Name: Mary Armstrong Age: 64 years : 1960 Gender: Female Ht: 64 in Wt: 200 lbs BSA: 2.06 m2 HR: 89 bpm BP: 132 / 106 mmHg Technical Quality: Good Exam Date: 01/27/2025 2:24 PM Patient Status: O Admit Date: 01/27/2025 Exam Type: CA echo doppler color flow Complete two-dimensional, color flow and Doppler transthoracic echocardiogram is performed. Manager Technical Support: Elizabeth Díaz Attending Provider: Stephen Briscoe DO Summary 1. Complete two-dimensional, color flow and Doppler transthoracic echocardiogram is performed. 2. Left ventricular chamber dimension is normal. 3. Left ventricular systolic function is normal, estimated at 60-65. 4. There is mild concentric increased left ventricular wall thickness. 5. The left ventricular diastolic function is grade I diastolic dysfunction. 6. E/e' 8 is minimally elevated. 7. The aortic valve is not well visualized. Cannot determine number of aortic valve leaflets. 8. There is moderate aortic valve sclerosis. 9. There is mild aortic valve stenosis with a peak velocity of 207 cm/s, mean gradient of 9 mmHg, and aortic valve area of 1.6 cm2. 10. There is mild to moderate aortic valve regurgitation. 11. No pulmonary hypertension, estimated pulmonary arterial systolic pressure is 34 mmHg. Left Ventricle E/e' 8 is minimally elevated. Left ventricular chamber dimension is normal. Left ventricular systolic function is normal, estimated at 60-65. There is mild concentric increased left ventricular wall thickness. The left ventricular diastolic function is grade I diastolic dysfunction. Right Ventricle Right ventricular chamber dimension is normal. Right ventricular systolic function is normal and with normal TAPSE 2.7 cm. Left Atria Left atrial chamber dimension is normal. Right Atria Right atrial chamber dimension is normal. Aortic Valve The aortic valve is not well visualized. Cannot determine number of aortic valve leaflets. There is moderate aortic valve sclerosis. There is mild aortic valve stenosis with a peak velocity of 207 cm/s, mean gradient of 9 mmHg, and aortic valve area of 1.6 cm2. There is mild to moderate aortic valve regurgitation. Pulmonic Valve There is no pulmonic regurgitation. Mitral Valve There is no mitral valve stenosis. There is no mitral valve regurgitation. Tricuspid Valve There is no tricuspid valve regurgitation. No pulmonary hypertension, estimated pulmonary arterial systolic pressure is 34 mmHg. Pericardium/Pleural There is no pericardial effusion. Inferior Vena Cava Normal inferior vena cava with >50% collapse upon inspiration consistent with normal right atrial pressure, 5 mmHg. Aorta The aortic root size at the sinus of Valsalva is normal. Left Ventricular Outflow Tract Name Value Normal LVOT 2D LVOT Diameter 1.9 cm LVOT Doppler LVOT Peak Velocity 123 cm/s LVOT Peak Gradient 6 mmHg LVOT Mean Gradient 4 mmHg LVOT VTI 23 cm LVOT VTI/AV VTI Ratio 0.6 LVOT Stroke Volume 63 ml LVOT CO 5.5 l/min LVOT CI 2.7 l/min/m2 Pulmonic Valve Name Value Normal PV Doppler PV Peak Velocity 108 cm/s PV Peak Gradient 5 mmHg Mitral Valve Name Value Normal MV Diastolic Function MV E Peak Velocity 89 cm/s MV A Peak Velocity 125 cm/s MV E/A 0.7 MV Decel Time (PW) 162 ms MV Annular TDI MV E/e' (Septal) 10.5 MV E/e' (Lateral) 7.4 MV E/e' (Average) 8.9 Tricuspid Valve Name Value Normal TV Regurgitation Doppler TR Peak Velocity 271 cm/s TR Peak Gradient 29 mmHg Estimated PAP/RSVP RA Pressure 5 mmHg <=5 PA Systolic Pressure 34 mmHg <36 RV Systolic Pressure 34 mmHg <36 TV Annular TDI TV Lateral Anita s' Velocity 13.1 cm/s >=9.5 Aortic Valve Name Value Normal AV Doppler AV Peak Velocity 207 cm/s AV Peak Gradient 17 mmHg AV Mean Gradient 9 mmHg AV VTI 39 cm AV Area (Cont Eq VTI) 1.6 cm2 >=3.0 AV Area (Cont Eq Eladio) 1.6 cm2 AV DI (Eladio) 0.59 AV Regurgitation 2D LVOT Area 2.7 cm2 Ventricles Name Value Normal LV Dimensions 2D/MM IVS Diastolic Thickness (2D) 1.0 cm 0.6-1.0 LVID Diastole (2D) 4.9 cm 3.8-5.2 LVIW Diastolic Thickness (2D) 1.2 cm 0.6-0.9 LVID Systole (2D) 3.4 cm 2.2-3.5 LVOT Diameter 1.9 cm LV Mass (2D Cubed) 202.83 g 67.00-162.00 LV Mass Index (2D Cubed) 98 g/m2 43-95 Relative Wall Thickness (2D) 0.47 <=0.42 LV Fractional Shortening/Ejection Fraction 2D/MM LV Fractional Shortening (2D) 26 % 27-45 LV EF (2D Teichholz) 59 % LV Diastolic Volume (4C MOD) 79 ml LV EF (4C MOD) 66 % LV Diastolic Volume (2C MOD) 64 ml LV EF (2C MOD) 57 % LV Diastolic Volume (BP MOD) 73 ml 46-106 LV Diastolic Volume Index (BP MOD) 35 ml/m2 29-61 LV Systolic Volume (BP MOD) 27 ml 14-42 LV Systolic Volume Index (BP MOD) 13 ml/m2 8-24 LV EF (BP MOD) 63 % 54-74 LV Diastolic Length (4C) 7.5 cm LV Systolic Length (4C) 6.6 cm LV Stroke Volume (4C MOD) 52 ml Atria Name Value Normal LA Dimensions LA Volume (4C A-L) 38 ml LA Volume (BP A-L) 36 ml RA Dimensions RA Systolic [place] Length (4C) 3.9 cm 2.2-2.8 RA Area (4C) 12.0 cm2 <=18.0 Report Signatures
== END 2025-01-27 13:46 | disposition home or self-care (01) ==
PROVIDERS: PCP Family Medicine; Visit Provider Internal Medicine Cardiovascular Disease
DX: R93.1 Abnormal findings on diagnostic imaging of heart and coronary circulation (principal); I35.1 Nonrheumatic aortic (valve) insufficiency; I51.7 Cardiomegaly; I50.30 Unspecified diastolic (congestive) heart failure; I35.8 Other nonrheumatic aortic valve disorders; I35.0 Nonrheumatic aortic (valve) stenosis
CPT/HCPCS: 93306

== ENCOUNTER 2025-02-08 11:07 | Emergency (ER) | payer MEDICARE, MEDICAID, SELFPAY ==
[2025-02-08 11:42] VITALS: BP 141/81; PULSE 90; RESP 18; TEMP 36.9; O2SAT 96
--- NOTE | 2025-02-08 11:49 | ED_ITS ---
HPI - Female Genitourinary General Chief complaint: Urogenital-Female <Jewels Hagan APRN - Last Filed: 02/08/25 15:03> Stated complaint: blood in urine <Jewels Hagan APRN - Last Filed: 02/08/25 15:03> Time Seen by Provider: 02/08/25 11:49 <Jewels Hagan APRN - Last Filed: 02/08/25 15:03> Focused HPI: Patient is a 64-year-old female presents to ER with urinary symptoms that have been present for the past 2-3 days along with a gush of blood in my underwear this morning. She reports the blood in her underwear has never happened before. Patient endorses burning and urgency. She denies any significant abdominal pain. Patient's medical history includes some mental health diagnoses, overactive bladder, and osteoarthiritis. GENERAL: Well-appearing, well-nourished, and in no acute distress. HEAD: Normocephalic, atraumatic. CHEST: Clear to auscultation. ?No respiratory distress. HEART: Regular rate and rhythm.? NEURO: ?Alert and oriented x3. Patient screened in triage and initial orders placed.? ?Additional care and disposition to be based upon?diagnostic testing and treatment. <Jewels Hagan APRN - Last Filed: 02/08/25 15:03> Source: patient <Pedro Brady MD - Last Filed: 02/08/25 15:03> Mode of arrival: ambulatory <Pedro Brady MD - Last Filed: 02/08/25 15:03> History of Present Illness HPI Narrative: 64-year-old with a history of bilateral lymphedema, overactive bladder here with a complaint of blood in for past 2 days. She denies any fever chills. History is she has urinary frequency and urgency. No history of fever or chills denies any flank pain. No previous history of kidney stones. <Pedro Brady MD - Last Filed: 02/08/25 15:03> MD elicited complaint: dysuria <Pedro Brady MD - Last Filed: 02/08/25 15:03> Onset (ago): day(s) <Pedro Brady MD - Last Filed: 02/08/25 15:03> Related Data Home medications: Home Medications ?Medication ?Instructions ?Recorded ?Confirmed ?Last Taken ?Type acetaminophen 500 mg tablet 1,000 mg PO BID PRN Pain 07/03/24 12/17/24 Unknown History (Tylenol Extra Strength) amoxicillin 875 mg-potassium 1 tablet PO QHS 12/15/24 12/17/24 Unknown History clavulanate 125 mg tablet <Jewels Hagan APRN - Last Filed: 02/08/25 15:03> Allergies/Adverse reactions: Allergies Allergy/AdvReac Type Severity Reaction Status Date / Time pseudoephedrine Allergy Unknown Blister on Verified 02/08/25 11:46 inside of mouth <Jewels Hagan APRN - Last Filed: 02/08/25 15:03> Review of Systems 2 Review of Systems: All systems reviewed & are unremarkable except as noted in HPI and below <Pedro Brady MD - Last Filed: 02/08/25 15:03> Constitutional: Constitutional: Reports no additional constitutional complaints <Pedro Brady MD - Last Filed: 02/08/25 15:03> Eyes: Eyes: Reports no additional eye complaints <Pedro Brady MD - Last Filed: 02/08/25 15:03> ENT: Reports system reviewed and no additional complaints, except as documented <Pedro Brady MD - Last Filed: 02/08/25 15:03> Cardiovascular: Cardiovascular: Reports no additional cardiovascular complaints <Pedro Brady MD - Last Filed: 02/08/25 15:03> Respiratory: Respiratory: Reports no additional respiratory complaints < Pedro Brady MD - Last Filed: 02/08/25 15:03> Gastrointestinal: Gastrointestinal: Reports no additional gastrointestinal complaints <Pedro Brady MD - Last Filed: 02/08/25 15:03> Genitourinary: Genitourinary: Reports as per HPI <Pedro Brady MD - Last Filed: 02/08/25 15:03> Integumentary/Breasts: Skin/Breast: Reports system reviewed and no additional complaints, except as docu <Pedro Brayd MD - Last Filed: 02/08/25 15:03> Neurologic: Reports system reviewed and no additional complaints, except as documented <Pedro Brady MD - Last Filed: 02/08/25 15:03> Psychiatric: Psychiatric: Reports no additional psychiatric complaints < Pedro Brady MD - Last Filed: 02/08/25 15:03> [facility] Past Medical History Medical History: Medical History (Updated 02/08/25 @ 14:55 by Pedro Brady MD) Overactive bladder Foot deformity Congenital foot abnormality Osteoporosis Hypotension Family hx of colon cancer patient's mother had colon cancer Stress incontinence BMI 38.0-38.9,adult Orthopedic aftercare for joint replacement Heart murmur Lymphedema Primary osteoarthritis of right hip Weakness of both lower extremities Right knee pain Urge incontinence Hypothyroidism, unspecified Hypothyroid Allergic rhinitis, unspecified Anxiety disorder, unspecified care home use of drug GLENYS (obstructive sleep apnea) Uses CPAP nightly Onychogryphosis Osteopenia Other seasonal allergic rhinitis Primary (congenital) lymphedema Primary osteoarthritis of both knees Swelling of left lower extremity Vitamin D deficiency, unspecified <Jewels Hagan APRN - Last Filed: 02/08/25 15:03> Surgical History Surgical History: Surgical History History of right hip replacement (~07/18/21) right hip fracture 2 days after hip replacement Status post total hip replacement, right (~08/2021) History of hernia surgery (~1999) History of ear surgery (~1979) Double Ear Canal History of hand surgery (~1969) Bone Transfer History of elbow surgery (~1969) Bone Transfer History of tonsillectomy (~1968) <Jewels Hagan APRN - Last Filed: 02/08/25 15:03> Family History Family History: Family History Mother Carcinoma of colon Family history of congestive heart failure Patient's mother is , Onset Age: 67 Family history of malignant neoplasm of gastrointestinal tract Family history of primary malignant neoplasm of liver Father Family history of liver disease, Onset Age: 52 Other Family history of cardiovascular disease Hypertension Patient's mother is Other Diabetes mellitus Family history of kidney stones <Jewels Hagan APRN - Last Filed: 02/08/25 15:03> Social History Social History: Social History Social History: Single. Lives alone, next door to her sister. 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 Smoking status: Never smoker Second hand tobacco smoke exposure: No Alcohol intake: never Substance use: never Substance use type: does not use Do You Feel Safe in your Home?: Yes Lack of Transportation: No Lack of Food: Never True Current Housing: I Have Housing Concerned About Future Housing: No Difficulty Paying Gas/Electric Bills: No Difficulty Paying for Meds: No Currently Unemployed: No Education: Trade/Vocational Certificate Difficulty w/ Childcare or Family Care: No Living arrangements: with family Occupation/Education: occupation Gender identity (if verbalized by the patient): Female Spiritual care concerns: No <Jewels Hagan APRN - Last Filed: 02/08/25 15:03> Exam 2 Narrative: GENERAL: Well-appearing, well-nourished, and in no acute distress. HEAD: Normocephalic, atraumatic. EYES: PERRLA and EOMI. ENT: Nares clear, no rhinorrhea or epistaxis. Mucous membranes moist. NECK: Supple. CHEST: Clear to auscultation. No respiratory distress. HEART: Regular rate and rhythm. No murmur heard. Normal peripheral pulses. ABDOMEN: Soft, nontender, nondistended, normal active bowel sounds. EXTREMITIES: Normal range of motion. No edema. SKIN: Warm, dry, no rash. NEURO: No focal deficits. Alert and oriented x3. PSYCH: Normal mood and affect. <Pedro Brady MD - Last Filed: 02/08/25 15:03> Course Course Emergency Course: Notified patient about her lab work. She feels comfortable going home with oral antibiotic. Advised her to continue medication. <Pedro Brady MD - Last Filed: 02/08/25 15:03> Vital Signs Vital signs: Vital Signs Temperature 36.9 C 02/08/25 11:42 Pulse Rate 90 02/08/25 11:42 Respiratory Rate 18 02/08/25 11:42 Blood Pressure 141/81 H 02/08/25 11:42 Pulse Oximetry 96 02/08/25 11:42 Oxygen Delivery Room Air 02/08/25 11:42 Temperature 36.9 C 02/08/25 11:42 Pulse Rate 89 02/08/25 14:48 Respiratory Rate 17 02/08/25 14:48 Blood Pressure 130/75 02/08/25 14:48 Pulse Oximetry 97 02/08/25 14:48 Oxygen Delivery Room Air 02/08/25 11:42 <Jewels Hagan APRN - Last Filed: 02/08/25 15:03> Vital Signs Temperature 36.9 C 02/08/25 11:42 Pulse Rate 90 02/08/25 11:42 Respiratory Rate 18 02/08/25 11:42 Blood Pressure 141/81 H 02/08/25 11:42 Pulse Oximetry 96 02/08/25 11:42 Oxygen Delivery Room Air 02/08/25 11:42 Temperature 36.9 C 02/08/25 11:42 Pulse Rate 89 02/08/25 14:48 Respiratory Rate 17 02/08/25 14:48 Blood Pressure 130/75 02/08/25 14:48 Pulse Oximetry 97 02/08/25 14:48 Oxygen Delivery Room Air 02/08/25 11:42 <Pedro Brady MD - Last Filed: 02/08/25 15:03> MDM - Female Genitourinary Lab Data Result diagrams: 02/08/25 11:55 02/08/25 11:55 <Jewels Hagan APRN - Last Filed: 02/08/25 15:03> Labs: Lab Results 02/08/25 Range/Units 11:55 WBC 5.8 (4.5-10.0) K/mm3 RBC 4.45 (4.2-5.4) M/mm3 Hgb 13.6 (12.0-15.0) g/dL Hct 42.2 (37.0-47.0) % MCV 94.8 (80-100) fl MCH 30.6 (26-34) pg MCHC 32.2 (32-36) g/dl RDW 13.6 (11.5-14.5) % Plt Count 205 (150-375) k/mm3 MPV 10.0 (7.4-10.4) fl Immature Gran % (Auto) 0.3 (0-0.5) % Neut % (Auto) 65.7 (45.5-73.1) % Lymph % (Auto) 19.6 (18.3-44.2) % Campbell % (Auto) 9.5 H (2.6-8.5) % Eos % (Auto) 4.0 (0-4.4) % Baso % (Auto) 0.9 (0.2-1.2) % Lymph # (Auto) 1.13 (0.9-3.2) K/mm3 Campbell # (Auto) 0.6 (0.1-0.6) K/mm3 Eos # (Auto) 0.2 (0-0.3) K/mm3 Baso # (Auto) 0.1 (0.0-0.1) K/mm3 Abs Immat Gran (auto) 0.02 (0.00-0.031) K/mm3 Absolute Neuts (auto) 3.8 (1.3-6.7) K/mm3 Absolute Nucleated RBC 0.000 (0.0-0.012) K/mm3 Nucleated RBC % 0.0 (0.0-0.2) % PT 12.8 (11.1-14.7) Seconds INR 0.9 APTT 36.6 (22.3-36.8) Seconds Sodium 140 (137-145) mmol/L Potassium 4.0 (3.4-5.0) mmol/L Chloride 105 (98-107) mmol/L Carbon Dioxide 28 (22-30) mmol/L Anion Gap 7 (4-12) mmol/L BUN 18 H (7-17) mg/dL Creatinine 0.93 (0.7-1.0) mg/dL Estim Creat Clear Calc 58 ml/min Estimated GFR > 60 (59 - ) Glucose 94 (65-110) mg/dL Calcium 9.1 (8.4-10.2) mg/dL Total Bilirubin 0.7 (0.2-1.3) mg/dL AST 25 (14-36) U/L ALT 13 (6-35) U/L Alkaline Phosphatase 59 (38-126) U/L Total Protein 7.1 (6.3-8.2) g/dL Albumin 4.2 (3.5-5.1) g/dL Urine Color Yellow (Yellow) Urine Appearance Clear (Clear) Urine pH 6.5 (5.0-9.0) Ur Specific [place] 1.019 (1.001-1.035) Urine Protein Negative (Negative) mg/dL Urine Glucose (UA) Negative (Negative) mg/dL Urine Ketones Negative (Negative) mg/dL Ur Blood (Man) Non-hemolyzed trace H (Negative) Urine Nitrate Negative (Negative) Urine Bilirubin Negative (Negative) Urine Urobilinogen 1.0 (<2.0) mg/dL Leukocyte Esterase Rfl 2+ H (Negative) GIACOMO/UL Urine RBC 3-5 H (0-2) /hpf Urine WBC 21-50 H (0-3) /hpf Ur Squamous Epith Cells None seen (Few) /hpf Urine Bacteria Rare /hpf Urine Casts 0-2 <Jewels Hagan, HEALTHCARE RISK CONTROL CONSULTANT - Last Filed: 02/08/25 15:03> Lab Results 02/08/25 Range/Units 11:55 WBC 5.8 (4.5-10.0) K/mm3 RBC 4.45 (4.2-5.4) M/mm3 Hgb 13.6 (12.0-15.0) g/dL Hct 42.2 (37.0-47.0) % MCV 94.8 (80-100) fl MCH 30.6 (26-34) pg MCHC 32.2 (32-36) g/dl RDW 13.6 (11.5-14.5) % Plt Count 205 (150-375) k/mm3 MPV 10.0 (7.4-10.4) fl Immature Gran % (Auto) 0.3 (0-0.5) % Neut % (Auto) 65.7 (45.5-73.1) % Lymph % (Auto) 19.6 (18.3-44.2) % Campbell % (Auto) 9.5 H (2.6-8.5) % Eos % (Auto) 4.0 (0-4.4) % Baso % (Auto) 0.9 (0.2-1.2) % Lymph # (Auto) 1.13 (0.9-3.2) K/mm3 Campbell # (Auto) 0.6 (0.1-0.6) K/mm3 Eos # (Auto) 0.2 (0-0.3) K/mm3 Baso # (Auto) 0.1 (0.0-0.1) K/mm3 Abs Immat Gran (auto) 0.02 (0.00-0.031) K/mm3 Absolute Neuts (auto) 3.8 (1.3-6.7) K/mm3 Absolute Nucleated RBC 0.000 (0.0-0.012) K/mm3 Nucleated RBC % 0.0 (0.0-0.2) % PT 12.8 (11.1-14.7) Seconds INR 0.9 APTT 36.6 (22.3-36.8) Seconds Sodium 140 (137-145) mmol/L Potassium 4.0 (3.4-5.0) mmol/L Chloride 105 (98-107) mmol/L Carbon Dioxide 28 (22-30) mmol/L Anion Gap 7 (4-12) mmol/L BUN 18 H (7-17) mg/dL Creatinine 0.93 (0.7-1.0) mg/dL Estim Creat Clear Calc 58 ml/min Estimated GFR > 60 (59 - ) Glucose 94 (65-110) mg/dL Calcium 9.1 (8.4-10.2) mg/dL Total Bilirubin 0.7 (0.2-1.3) mg/dL AST 25 (14-36) U/L ALT 13 (6-35) U/L Alkaline Phosphatase 59 (38-126) U/L Total Protein 7.1 (6.3-8.2) g/dL Albumin 4.2 (3.5-5.1) g/dL Urine Color Yellow (Yellow) Urine Appearance Clear (Clear) Urine pH 6.5 (5.0-9.0) Ur Specific [place] 1.019 (1.001-1.035) Urine Protein Negative (Negative) mg/dL Urine Glucose (UA) Negative (Negative) mg/dL Urine Ketones Negative (Negative) mg/dL Ur Blood (Man) Non-hemolyzed trace H (Negative) Urine Nitrate Negative (Negative) Urine Bilirubin Negative (Negative) Urine Urobilinogen 1.0 (<2.0) mg/dL Leukocyte Esterase Rfl 2+ H (Negative) GIACOMO/UL Urine RBC 3-5 H (0-2) /hpf Urine WBC 21-50 H (0-3) /hpf Ur Squamous Epith Cells None seen (Few) /hpf Urine Bacteria Rare /hpf Urine Casts 0-2 <Pedro Brady MD - Last Filed: 02/08/25 15:03> Discharge Plan Discharge Clinical Impression: Urinary tract infection Qualifiers: Urinary tract infection type: acute cystitis Hematuria presence: with hematuria Qualified Code(s): N30.01 - Acute cystitis with hematuria <Jewels Hagan APRN - Last Filed: 02/08/25 15:03> Patient Disposition: Home <Jewels Hagan APRN - Last Filed: 02/08/25 15:03> Condition: Stable <Jewels Hagan APRN - Last Filed: 02/08/25 15:03> Instructions: Antibiotic Form, Urinary Tract Infection in Women (ED) <Jewels Hagan APRN - Last Filed: 02/08/25 15:03> Additional Instructions: Continue home medication drink more fluids take antibiotic as prescribed. Follow with the primary doctor. <Jewels Hagan APRN - Last Filed: 02/08/25 15:03> Patient Language: [place] <Jewels Hagan APRN - Last Filed: 02/08/25 15:03> Prescriptions: New cephalexin 500 mg capsule 500 mg PO Q12H 7 Days Qty: 14 0RF No Action amoxicillin-pot clavulanate 875-125 mg tablet 1 tablet PO QHS acetaminophen [Tylenol Extra Strength] 500 mg tablet 1,000 mg PO BID PRN (Reason: Pain) alendronate [Fosamax] 70 mg tablet 70 mg PO WEEKLY Qty: 12 1RF bupropion HCl 75 mg tablet 37.5 mg PO BID Qty: 180 1RF trazodone 50 mg tablet 50 mg PO QHS PRN (Reason: sleep) Qty: 90 1RF levothyroxine [Synthroid] 100 mcg tablet 100 mcg PO DAILY Qty: 90 0RF mirabegron [Myrbetriq] 50 mg tablet extended release 24 hr 50 mg PO DAILY Qty: 90 1RF meloxicam 15 mg tablet 7.5 mg PO BID Qty: 90 1RF <Jewels Hagan APRN - Last Filed: 02/08/25 15:03> Follow-up/Referrals: Wang Her MD [Primary Care Provider] - <Jewels Hagan APRN - Last Filed: 02/08/25 15:03> Time of Disposition: 14:55 <Jewels Hagan APRN - Last Filed: 02/08/25 15:03> 14:55 <Pedro Brady MD - Last Filed: 02/08/25 15:03>
[2025-02-08 12:03] LABS: Hematocrit 42.2 % (37.0-47.0); Hemoglobin 13.6 g/dL (12.0-15.0); Immature Granulocyte Percent A 0.3 % (0-0.5); Lymphocytes Absolute Auto 1.13 K/mm3 (0.9-3.2); Mean Corpuscular HGB Conc 32.2 g/dl (32-36); Mean Corpuscular Hemoglobin 30.6 pg (26-34); Mean Corpuscular Volume 94.8 fl (80-100); Nucleated Red Blood Cells Absolute Auto 0.000 K/mm3 (0.0-0.012); Nucleated Red Blood Cells Perc 0.0 % (0.0-0.2); Platelet Count Result 205 k/mm3 (150-375); Red Blood Count 4.45 M/mm3 (4.2-5.4); White Blood Count 5.8 K/mm3 (4.5-10.0)
[2025-02-08 12:09] LABS: Add Urine Microscopic? YES; Appearance Urine Clear (Clear); Glucose Urine UA Negative (Negative); Leukocyte Esterase Ur 2+ LEU/UL (Negative); Nitrate Urine Negative (Negative); Non Pathogenic Casts 0-2; Specific Grav Ur 1.019 (1.001-1.035)
[2025-02-08 12:16] LABS: Alanine Aminotransferase 13 U/L (6-35); Albumin Level 4.2 g/dL (3.5-5.1); Alkaline Phosphatase 59 U/L (38-126); Anion Gap 7 mmol/L (4-12); Aspartate Amino Transferase 25 U/L (14-36); Bilirubin,Total 0.7 mg/dL (0.2-1.3); Blood Urea Nitrogen 18 mg/dL (7-17); Calcium 9.1 mg/dL (8.4-10.2); Carbon Dioxide 28 mmol/L (22-30); Chloride 105 mmol/L (98-107); Estimated CRCL calculation 58 ml/min; Estimated Glomerular Filt Rate > 60; Glucose 94 mg/dL (65-110); Potassium 4.0 mmol/L (3.4-5.0); Sodium 140 mmol/L (137-145); Total Protein 7.1 g/dL (6.3-8.2)
[2025-02-08 12:27] LABS: INR 0.9; Prothrombin Time 12.8 Seconds (11.1-14.7)
[2025-02-08 12:28] LABS: Partial Thromboplastin Time 36.6 Seconds (22.3-36.8)
[2025-02-08 13:31] VITALS: BP 116/92; PULSE 85; RESP 15; O2SAT 97
[2025-02-08 14:48] VITALS: BP 130/75; PULSE 89; RESP 17; O2SAT 97
[2025-02-08 15:33] VITALS: BP 140/63; PULSE 81; RESP 16; TEMP 36.6; O2SAT 98
== END 2025-02-08 15:35 | disposition home or self-care (01) ==
PROVIDERS: Registered Nurse; Emergency Provider Family Medicine; PCP Family Medicine
DX: N30.01 Acute cystitis with hematuria (principal); M19.90 Unspecified osteoarthritis, unspecified site; E03.9 Hypothyroidism, unspecified; G47.30 Sleep apnea, unspecified; F41.9 Anxiety disorder, unspecified
CPT/HCPCS: 36415; 80053; 81001; 85025; 85610; 85730; 87086; 99283